=== PATIENT | female | born 1975 | race Caucasian/White ===

== ENCOUNTER 2016-12-21 06:57 | Day surgery (SDC) | payer MEDICARE, MEDICAID ==
[~2016-12-21 06:57] MED LIST: Lidocaine 1% with EPINEPHrine 1:100,000 50 ML MDV ONE; Sodium Chloride 0.9% 10 ML ONE; Sodium Tetradecyl Sulfate 1% 20 MG/2 ML SDV ONE
[2016-12-21] MEDS ORDERED: Propofol 200 MG/20 ML SDV ONE ×3 (07:40→08:37)
[2016-12-21] MEDS ORDERED: fentaNYL 100 MCG/2 ML SDV ONE ×2 (07:40→08:36)
[2016-12-21] MEDS ORDERED: Midazolam 1 MG/ML 2 ML SDV ONE ×2 (07:40→08:13)
[2016-12-21] MEDS ORDERED: Sodium Chloride 0.9% 1,000 ML IV SCH (08:00)
[2016-12-21] MEDS: Lidocaine 1% w/EPINEPHrine 50 ML, Sodium Bicarbonate 5 MEQ in Sodium Chloride 0.9% 950 ML INJECT SCH ×2 (08:15→09:01)
[2016-12-21] MEDS ORDERED: Lactated Ringers 1,000 ML ONE (08:48)
[2016-12-21 10:17] VITALS: BP 108/68
--- NOTE | 2016-12-21 13:07 | OR ---
DATE OF PROCEDURE: 12/21/2016 PROCEDURE: 1. Radiofrequency ablation of left greater saphenous vein. 2. Radiofrequency ablation of right greater saphenous vein. 3. Radiofrequency ablation of left anterior accessory vein. 4. Sclerotherapy, left leg, multiple. 5. Sclerotherapy, right leg, multiple. 6. Compression wrapping, left leg ([id number]). 7. Compression wrapping, right leg ([id number]). PREOPERATIVE DIAGNOSIS: Venous/varicose vein insufficiency with inflammation and pain. POSTOPERATIVE DIAGNOSIS: Venous/varicose vein insufficiency with inflammation and pain. RISKS: Risks, benefits, alternatives, and limitations, including, but not limited to infection, bleeding, and DVT formation along with chronic scar formation, and pigmentation change were explained to the patient, and they wished to proceed. ANESTHESIA: MAC/local. PROCEDURE IN DETAIL: The patient was placed in supine position. The left GSV would be accessed first. This was accessed around the mid calf. This was accessed using a 21-gauge needle, then exchanged for a 35,000 wire, then exchanged for a 7-Nepalese sheath. The RFA probe was advanced to the mid thigh. Tumescent fluid was injected in 1 cm jacket around this and verified a second and a third time. The direct even pressure was performed as the probe was deployed x2 proximally and distally, and x1 in all other segments. The anterior accessory vein on the left would be then addressed in same manner, same fashion, same technique in the same sequence using the same equipment. This was accessed in the mid thigh. The only difference is this was the short probe, approximately 3 cm in functional area rather than the large probe. Both the sheath and devices were removed in direct pressure along with Dermabond was applied. The right leg was then performed. The greater saphenous vein in same manner, same fashion, same technique, using the same equipment (long probe) in the same manner, same time. Sclerotherapy was then performed in left and right legs using 0.33% sodium tetradecyl. There were 6 on the left and 5 on the right. This was always drawn back to ensure intravascular injection only. No more than 2 mL was injected in one location. Two-layer CoFlex compression wrapping was then performed in the left and right legs after the Dermabond was dried. This was performed in same fashion technique using the crisscross pattern in two layers. The patient tolerated the procedure well. Rubio Moran MD /[id number]
== END 2016-12-21 10:19 | disposition home or self-care (01) ==
LOC: JP.SDS 06:57
PROVIDERS: ATTEND Surgery
DX: I87.2 Venous insufficiency (chronic) (peripheral) (principal); I83.11 Varicose veins of right lower extremity with inflammation; I83.12 Varicose veins of left lower extremity with inflammation; I83.813 Varicose veins of bilateral lower extremities with pain; F41.9 Anxiety disorder, unspecified; F32.9 Major depressive disorder, single episode, unspecified; K21.9 Gastro-esophageal reflux disease without esophagitis; F17.210 Nicotine dependence, cigarettes, uncomplicated; Z90.49 Acquired absence of other specified parts of digestive tract; Z98.84 Bariatric surgery status; Z98.890 Other specified postprocedural states; Z98.51 Tubal ligation status; Z90.722 Acquired absence of ovaries, bilateral; Z88.8 Allergy status to other drugs, medicaments and biological substances
CPT/HCPCS: 29581; 36471; 36475; 36476; C1888; J1642; J2250; J2704; J3010; J7040; J7050; J7120; J3490

== ENCOUNTER 2017-01-04 06:52 | Day surgery (SDC) | payer MEDICARE, MEDICAID ==
[2017-01-04] MEDS ORDERED: Sodium Chloride 0.9% 10 ML ONE (07:05)
[2017-01-04] MEDS ORDERED: Sodium Tetradecyl Sulfate 1% 20 MG/2 ML SDV ONE (07:05)
[2017-01-04] MEDS ORDERED: Lidocaine 1% with EPINEPHrine 1:100,000 50 ML MDV ONE (07:05)
[2017-01-04] MEDS ORDERED: Sodium Chloride 0.9% 1,000 ML IV SCH (07:30)
[2017-01-04] MEDS ORDERED: Propofol 200 MG/20 ML SDV ONE ×2 (08:07→08:33)
[2017-01-04] MEDS ORDERED: fentaNYL 100 MCG/2 ML SDV ONE ×2 (08:07→08:33)
[2017-01-04] MEDS ORDERED: Midazolam 1 MG/ML 2 ML SDV ONE (08:08)
[2017-01-04] MEDS: Lidocaine 1% w/EPINEPHrine 50 ML, Sodium Bicarbonate 5 MEQ in Sodium Chloride 0.9% 950 ML INJECT SCH ×2 (08:15→14:52)
[2017-01-04] MEDS ORDERED: Sodium Chloride 0.9% 10 ML SDV ONE (08:48)
[2017-01-04 09:38] VITALS: BP 97/44
--- NOTE | 2017-01-04 15:21 | OR ---
DATE OF PROCEDURE: 01/04/2017 PROCEDURES: 1. Radiofrequency ablation of left lesser saphenous vein. 2. Sclerotherapy left leg, multiple. 3. Sclerotherapy right leg, multiple. 4. Coldflex compression wrapping left leg ([id number]). COMPLICATIONS: None. 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 ANESTHESIA: MAC/local. INDICATIONS: A pleasant female with bilateral lesser saphenous vein reflux. RISKS: Risks, benefits, alternatives, and limitations including, but not limited to infection, bleeding, and DVT formation were explained to the patient and she wishes to proceed. PREOPERATIVE DIAGNOSES: Venous/varicose vein insufficiency with inflammation and pain. POSTOPERATIVE DIAGNOSES: Venous/varicose vein insufficiency with inflammation and pain. PROCEDURE IN DETAIL: The patient was placed in prone position. The right GSV was identified at first. This was accessed at the level of the ankle using a 21-gauge needle exchanged for a 0.035 wire and a 7-Polish sheath. Prior to introduction of the RFA probe, the vein was reinspected, and possible clot noted with this. Therefore, the RFA was terminated on the right side. The left LSV was then ablated with induction as the technique described above, and the RFA probe introduction and advancement 2 to 3 cm from the deep junction. Tumescent fluid was injected in 1 cm jacket around this. Of note, tumescent fluid was not injected in the right leg. Direct even pressure was held as the probe was deployed x2 proximally and distally and x1 in all of the segments. The sheath and device were then removed and Dermabond was applied. Sclerotherapy was then performed next using 0.33% sodium tetradecyl. This was performed in the left and right legs using no more than 2 mL injected in all locations. There was 5 on the left and 4 on the right. Coldflex wrapping was performed on the left leg. Rubio Moran MD /[id number]
== END 2017-01-04 10:15 | disposition home or self-care (01) ==
LOC: JP.SDS 06:52
PROVIDERS: ATTEND Surgery
DX: I87.2 Venous insufficiency (chronic) (peripheral) (principal); I83.11 Varicose veins of right lower extremity with inflammation; I83.12 Varicose veins of left lower extremity with inflammation; I83.813 Varicose veins of bilateral lower extremities with pain; Z88.8 Allergy status to other drugs, medicaments and biological substances; F17.200 Nicotine dependence, unspecified, uncomplicated
CPT/HCPCS: 29581; 36471; 36475; J1642; J2250; J2704; J3010; J7040; J7050; J3490

== ENCOUNTER 2017-08-25 06:37 | Emergency (ER) | payer MEDICARE, MEDICAID ==
--- NOTE | 2017-08-25 08:49 | EDM.PDOC ---
ED HPI GENERAL MEDICAL PROBLEM - General Chief Complaint: Cardiovascular Problem Stated Complaint: BLOOD CLOT? Time Seen by Provider: 08/25/17 07:20 Source of Information: Reports: Patient History Limitations: Reports: No Limitations - History of Present Illness INITIAL COMMENTS - FREE TEXT/NARRATIVE: pt arrived with redness and tenderness in her loer inner thigh. She has had a vein procedure done and it was near one of the scars. Onset: Gradual, Other ( started about 2 days ago. ) Duration: Hour(s):, Getting Worse Location: Reports: Lower Extremity, Right Associated Symptoms: Reports: No Other Symptoms, Other (pt has not had sob. ) - Related Data Allergies Allergy/AdvReac Type Severity Reaction Status Date / Time carbamazepine [From Tegretol] Allergy Abdominal Verified 01/04/17 07:19 Pain NSAIDS (Non-Steroidal Allergy Cannot Verified 01/04/17 07:19 Anti-Inflamma Remember meperidine HCl [From Demerol] AdvReac Shaking Verified 01/04/17 07:19 Home Meds: Home Meds Omeprazole 20 mg PO DAILY 03/06/13 [History] Phenytoin [Dilantin] 450 mg PO BEDTIME 03/06/13 [History] Warfarin [Coumadin] 7.5 mg PO BEDTIME 03/06/13 [History] Topiramate [Topamax] 50 mg PO DAILY 09/02/13 [History] Venlafaxine [Effexor] 75 mg PO BEDTIME 06/02/14 [History] Carbidopa/Levodopa [Sinemet Cr 25-100 mg] 25 - 100 mg PO DAILY 07/27/14 [History ] Mirtazapine 30 mg PO DAILY 07/27/14 [History] EPINEPHrine [Epipen] 0.3 mg IM ONETIME PRN 05/07/15 [History] Multivitamin with Minerals [Brandan Multivitamin with Mineral] 1 tab PO DAILY 05/07 [History] Past Medical History HEENT History: Reports: Other (See Below) Other HEENT History: Dental issues Cardiovascular History: Reports: Blood Clots/VTE/DVT Respiratory History: Reports: PE, Other (See Below) Other Respiratory History: PE 12 years ago on coumadin. Gastrointestinal History: Reports: None Genitourinary History: Reports: None [employer] History: Reports: Musculoskeletal History: Reports: None Neurological History: Reports: Seizure Other Neuro History: last seizure 3 years ago Psychiatric History: Reports: Anxiety, Bipolar, Depression, Emotional Problems Hematologic History: Reports: B12 Deficiency, Bleeding Disorder, Iron Deficiency , Other (See Below) Other Hematologic History: factor 5 Dermatologic History: Reports: None - Infectious Disease History Infectious Disease History: Reports: Chicken Pox - Past Surgical History HEENT Surgical History: Reports: None Cardiovascular Surgical History: Reports: None Respiratory Surgical History: Reports: None GI Surgical History: Reports: Appendectomy, Bariatric Procedure, Cholecystectomy , EGD Neurological Surgical History: Reports: None Musculoskeletal Surgical History: Reports: Carpal Tunnel Social & Family History - Family History Family Medical History: Noncontributory Cardiac: Reports: [place] Respiratory: Reports: Other (See Below) Other Respiratory Family Hisory: emphysema Psychiatric: Reports: Other (See Below) Other Psychiatric Family History: Mental illness,alzheimers Endocrine/Metabolic: Reports: Diabetes, type II Oncologic: Reports: Breast, Lung - Tobacco Use Smoking Status *Q: Current Every Day Smoker Years of Tobacco use: 20 Packs/Tins Daily: 0.5 Used Tobacco, but Quit: No Second Hand Smoke Exposure: No - Caffeine Use Caffeine Use: Reports: Coffee - Alcohol Use Days Per Week of Alcohol Use: 0 - Recreational Drug Use Recreational Drug Use: No ED ROS GENERAL - Review of Systems Review Of Systems: See Below Constitutional: Reports: No Symptoms HEENT: Reports: No Symptoms Respiratory: Reports: No Symptoms, Other (pt is not sob,) Cardiovascular: Reports: No Symptoms Endocrine: Reports: No Symptoms GI/Abdominal: Reports: No Symptoms : Reports: No Symptoms Musculoskeletal: Reports: Other ( tendr in the rt inner thigh area. ) ED EXAM, GENERAL - Physical Exam Exam: See Below Free Text/Narrative:: Pt arrived with redness in one of the scars on the inner rt thigh. It is red and firm and quite tender. Exam Limited By: No Limitations General Appearance: Alert, Anxious Ears: Normal TMs Nose: Normal Inspection Throat/Mouth: Normal Inspection Head: Atraumatic Neck: Normal Inspection Respiratory/Chest: No Respiratory Distress Cardiovascular: Regular Rate, Rhythm GI/Abdominal: Soft, Non-Tender (Female) Exam: Deferred Rectal (Female) Exam: Deferred Back Exam: Normal Inspection Extremities: Redness (pt has redness near a scar on the inner aspect of the rt thigh. There is tenderness extending to the groin area. The area of redness and firmness feels like a superficial dvt. ), Other Neurological: Alert, Oriented, Normal Cognition Psychiatric: Normal Affect Course - Vital Signs Last Recorded V/S: Last Vital Signs Temp 36.9 C 08/25/17 07:03 Pulse 63 08/25/17 07:03 Resp 12 08/25/17 07:03 BP 114/51 L 08/25/17 07:03 Pulse Ox 94 L 08/25/17 07:03 - Orders/Labs/Meds Orders: Active Orders 24 hr Category Date Time Status Duplex Lwr Ext Veins Ltd Rt [US] Stat Exams 08/25/17 07:43 Taken Labs: Laboratory Tests 08/25/17 Range/Units 09:10 PT 20.7 H (9.5-12.0) sec INR 1.88 H (0.80-1.20) - Re-Assessments/Exams Free Text/Narrative Re-Assessment/Exam: 08/25/17 09:52 us did not reveal any deep clot. She has residual changes from her vein procedure. She has a superficial dvt on the us. Her inr is 1.88. Departure - Departure Time of Disposition: 09:53 Disposition: Home, Self-Care 01 Condition: Fair Clinical Impression: Superficial thrombophlebitis Referrals: Waldemar Chandler MD [Primary Care Provider] - Forms: ED Department Discharge Care Plan Goals: elevate leg when sitting, moist warm packs to the area. tylenol for discomfort. - My Orders Last 24 Hours: My Active Orders 08/25/17 07:43 Duplex Lwr Ext Veins Ltd Rt [US] Stat - Assessment/Plan Last 24 Hours: My Active Orders 08/25/17 07:43 Duplex Lwr Ext Veins Ltd Rt [US] Stat
[2017-08-25 10:18] VITALS: BP 98/70
--- NOTE | 2017-08-27 09:42 | US ---
VL Duplex Lwr Ext Veins Ltd Rt HISTORY: possible blood clot FINDINGS: Deep venous system of the right lower extremity demonstrates normal blood flow and compressibility th roughout. Normal Doppler waveform variation is seen with respiration and calf compression. No color f low abnormality can be seen. Superficial thrombus is seen in the right greater saphenous vein and in the distal anterior accessory saphenous vein. This probably correlates with the patient's history of prior RFA greater saphenous v ein. IMPRESSION: 1. No sonographic evidence for DVT right lower extremity. 2. Superficial thrombus is seen in the right greater saphenous vein and in the anterior accessory sap henous vein distal thigh. The patient has a history of right greater saphenous vein RFA.
== END 2017-08-25 10:19 | disposition home or self-care (01) ==
LOC: JP.ED 06:37
DX: I80.01 Phlebitis and thrombophlebitis of superficial vessels of right lower extremity (principal); F17.210 Nicotine dependence, cigarettes, uncomplicated; Z88.8 Allergy status to other drugs, medicaments and biological substances; Z88.5 Allergy status to narcotic agent; Z79.899 Other long term (current) drug therapy; Z86.718 Personal history of other venous thrombosis and embolism
CPT/HCPCS: 36415; 85610; 93971-26; 93971-RT; 99284-25

== ENCOUNTER 2017-08-31 17:55 | Emergency (ER) | payer MEDICARE, MEDICAID ==
[2017-08-31 18:10] VITALS: BP 139/61
--- NOTE | 2017-08-31 18:49 | EDM.PDOC ---
ED HPI GENERAL MEDICAL PROBLEM - General Chief Complaint: Cardiovascular Problem Stated Complaint: CONCERN ABOUT BLOOD CLOT/LT LEG Time Seen by Provider: 08/31/17 18:40 Source of Information: Reports: Patient History Limitations: Reports: No Limitations - History of Present Illness INITIAL COMMENTS - FREE TEXT/NARRATIVE: 41-year-old female with a history of DVT, also a hypercoagulable disorder on Coumadin but was subtherapeutic on her last check. Over the last 12-24 hours she 's developed discomfort and pain under the left leg in the popliteal area into her calf. Left Leg Pain Score (Numeric/FACES): 6 - Related Data Allergies Allergy/AdvReac Type Severity Reaction Status Date / Time carbamazepine [From Tegretol] Allergy Abdominal Verified 08/31/17 18:21 Pain NSAIDS (Non-Steroidal Allergy Cannot Verified 08/31/17 18:21 Anti-Inflamma Remember meperidine HCl [From Demerol] AdvReac Shaking Verified 08/31/17 18:21 Home Meds: Home Meds Omeprazole 20 mg PO DAILY 03/06/13 [History] Phenytoin [Dilantin] 450 mg PO BEDTIME 03/06/13 [History] Warfarin [Coumadin] 7.5 mg PO BEDTIME 03/06/13 [History] Topiramate [Topamax] 50 mg PO DAILY 09/02/13 [History] Venlafaxine [Effexor] 75 mg PO BEDTIME 06/02/14 [History] Carbidopa/Levodopa [Sinemet Cr 25-100 mg] 25 - 100 mg PO DAILY 07/27/14 [History ] Mirtazapine 30 mg PO DAILY 07/27/14 [History] EPINEPHrine [Epipen] 0.3 mg IM ONETIME PRN 05/07/15 [History] Multivitamin with Minerals [Brandan Multivitamin with Mineral] 1 tab PO DAILY 05/07 [History] Past Medical History HEENT History: Reports: Other (See Below) Other HEENT History: Dental issues Cardiovascular History: Reports: Blood Clots/VTE/DVT Respiratory History: Reports: PE, Other (See Below) Other Respiratory History: PE 12 years ago on coumadin. Gastrointestinal History: Reports: None Genitourinary History: Reports: None [employer] History: Reports: Musculoskeletal History: Reports: None Neurological History: Reports: Seizure Other Neuro History: last seizure 3 years ago Psychiatric History: Reports: Anxiety, Bipolar, Depression, Emotional Problems Hematologic History: Reports: B12 Deficiency, Bleeding Disorder, Iron Deficiency , Other (See Below) Other Hematologic History: factor 5 Dermatologic History: Reports: None - Infectious Disease History Infectious Disease History: Reports: Chicken Pox - Past Surgical History HEENT Surgical History: Reports: None Cardiovascular Surgical History: Reports: None Respiratory Surgical History: Reports: None GI Surgical History: Reports: Appendectomy, Bariatric Procedure, Cholecystectomy , EGD Neurological Surgical History: Reports: None Musculoskeletal Surgical History: Reports: Carpal Tunnel Social & Family History - Family History Family Medical History: Noncontributory Cardiac: Reports: [place] Respiratory: Reports: Other (See Below) Other Respiratory Family Hisory: emphysema Psychiatric: Reports: Other (See Below) Other Psychiatric Family History: Mental illness,alzheimers Endocrine/Metabolic: Reports: Diabetes, type II Oncologic: Reports: Breast, Lung - Tobacco Use Smoking Status *Q: Unknown Ever Smoked Years of Tobacco use: 20 Packs/Tins Daily: 0.5 Used Tobacco, but Quit: No Second Hand Smoke Exposure: No - Caffeine Use Caffeine Use: Reports: Coffee - Alcohol Use Days Per Week of Alcohol Use: 0 - Recreational Drug Use Recreational Drug Use: No ED ROS GENERAL - Review of Systems Review Of Systems: See Below Constitutional: Denies: Fever, Chills Respiratory: Denies: Shortness of Breath, Cough Cardiovascular: Denies: Chest Pain GI/Abdominal: Denies: Abdominal Pain, Nausea, Vomiting : Reports: No Symptoms Musculoskeletal: Reports: Other (She is already dealing with some superficial medial right leg discomfort diagnosed as superficial thrombosis a week and a half ago) Neurological: Reports: No Symptoms Psychiatric: Reports: No Symptoms ED EXAM, GENERAL - Physical Exam Exam: See Below General Appearance: Alert, No Apparent Distress Respiratory/Chest: No Respiratory Distress Cardiovascular: Regular Rate, Rhythm Extremities: Other (Exam is otherwise limited to the lower extremities. She has fairly significant tenderness to palpation through the popliteal area and proximal calf of the left leg. There is no erythema or swelling, no distal edema.) Course - Vital Signs Last Recorded V/S: Last Vital Signs Temp 97.9 F 08/31/17 18:20 Pulse 74 08/31/17 18:20 Resp 16 08/31/17 18:20 BP 139/61 08/31/17 18:20 Pulse Ox 99 08/31/17 18:20 - Orders/Labs/Meds Orders: Active Orders 24 hr Category Date Time Status VL Duplex Lwr Ext Veins Ltd Lt [US] Stat Exams 08/31/17 18:47 Taken Labs: Laboratory Tests 08/31/17 Range/Units 18:47 PT 19.7 H (9.5-12.0) sec INR 1.80 H (0.80-1.20) - Re-Assessments/Exams Free Text/Narrative Re-Assessment/Exam: 08/31/17 19:40 INR is 1.8. Ultrasound of the left extremity was obtained. 08/31/17 20:19 Ultrasound showed no acute findings, some chronic venous inflammation was present but not corresponding to painful areas. Patient was encouraged to continue regular activity, recheck the INR on Sunday morning and call the Coumadin clinic for further instructions. Heating pad to the sore area may help. Departure - Departure Time of Disposition: 20:26 Disposition: Home, Self-Care 01 Condition: Good Clinical Impression: Leg pain, left Referrals: Waldemar Chandler MD [Primary Care Provider] - Forms: ED Department Discharge Care Plan Goals: Continue activity as tolerated, heating pad to the sore area may be beneficial. Recheck INR on Sunday and call the Coumadin clinic for further instructions, or return anytime if worsening or concerns. - My Orders Last 24 Hours: My Active Orders 08/31/17 18:47 VL Duplex Lwr Ext Veins Ltd Lt [US] Stat - Assessment/Plan Last 24 Hours: My Active Orders 08/31/17 18:47 VL Duplex Lwr Ext Veins Ltd Lt [US] Stat
--- NOTE | 2017-09-03 08:46 | US ---
VL Duplex Lwr Ext Veins Ltd Lt INDICATION: popliteal pain, hx dvt FINDINGS: Ultrasound examination of the lower extremity using Doppler and compressive technique demon strates that the common femoral, femoral, and popliteal veins are patent, and negative for acute occl usive thrombus. There is mild thickening of the maher of the left femoral vein suggesting chronic DVT . Occlusion of the left greater saphenous and lesser saphenous veins consistent with history of RFA. The calf veins were segmentally visualized and are negative where seen. IMPRESSION: Negative for acute deep venous thrombosis. Please see discussion above.
== END 2017-08-31 20:26 | disposition home or self-care (01) ==
LOC: JP.ED 17:55
DX: M79.605 Pain in left leg (principal); Z88.8 Allergy status to other drugs, medicaments and biological substances; Z79.899 Other long term (current) drug therapy
CPT/HCPCS: 36415; 85610; 93971-26-LT; 93971-LT; 99284-25

== ENCOUNTER 2017-12-08 15:27 | Emergency (ER) | payer MEDICARE, MEDICAID ==
[2017-12-08 15:47] VITALS: BP 119/69
--- NOTE | 2017-12-08 16:34 | EDM.PDOC ---
ED HPI GENERAL MEDICAL PROBLEM - General Chief Complaint: Lower Extremity Injury/Pain Stated Complaint: POSSIBLE BLOOD CLOT IN LEG Time Seen by Provider: 12/08/17 16:10 Source of Information: Reports: Patient History Limitations: Reports: No Limitations - History of Present Illness INITIAL COMMENTS - FREE TEXT/NARRATIVE: Adela presents today with complaints of LLE pain, edema and redness for two days. She reports a history of DVT, stating her INR has not been within the appropriate range lately. leeft leg Pain Score (Numeric/FACES): 3 - Related Data Allergies Allergy/AdvReac Type Severity Reaction Status Date / Time carbamazepine [From Tegretol] Allergy Abdominal Verified 12/08/17 15:51 Pain NSAIDS (Non-Steroidal Allergy Cannot Verified 12/08/17 15:51 Anti-Inflamma Remember meperidine HCl [From Demerol] AdvReac Shaking Verified 12/08/17 15:51 Home Meds: Home Meds Omeprazole 20 mg PO DAILY 03/06/13 [History] Phenytoin [Dilantin] 450 mg PO BEDTIME 03/06/13 [History] Warfarin [Coumadin] 7.5 mg PO BEDTIME 03/06/13 [History] Topiramate [Topamax] 50 mg PO DAILY 09/02/13 [History] Venlafaxine [Effexor] 75 mg PO BEDTIME 06/02/14 [History] Carbidopa/Levodopa [Sinemet Cr 25-100 mg] 25 - 100 mg PO DAILY 07/27/14 [History ] Mirtazapine 30 mg PO DAILY 07/27/14 [History] EPINEPHrine [Epipen] 0.3 mg IM ONETIME PRN 05/07/15 [History] Multivitamin with Minerals [Brandan Multivitamin with Mineral] 1 tab PO DAILY 05/07 [History] Past Medical History HEENT History: Reports: Other (See Below) Other HEENT History: Dental issues Cardiovascular History: Reports: Blood Clots/VTE/DVT Respiratory History: Reports: PE, Other (See Below) Other Respiratory History: PE 12 years ago on coumadin. 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: Musculoskeletal History: Reports: None Neurological History: Reports: Seizure, Other (See Below) Other Neuro History: last seizure 3 years ago, epilepsy Psychiatric History: Reports: Anxiety, Bipolar, Depression, Emotional Problems Hematologic History: Reports: B12 Deficiency, Bleeding Disorder, Iron Deficiency , Other (See Below) Other Hematologic History: factor 5 Dermatologic History: Reports: None - Infectious Disease History Infectious Disease History: Reports: Chicken Pox - Past Surgical History HEENT Surgical History: Reports: None Cardiovascular Surgical History: Reports: None Respiratory Surgical History: Reports: None GI Surgical History: Reports: Appendectomy, Bariatric Procedure, Cholecystectomy , EGD Neurological Surgical History: Reports: None Musculoskeletal Surgical History: Reports: Carpal Tunnel Social & Family History - Family History Family Medical History: Noncontributory Cardiac: Reports: [place] Respiratory: Reports: Other (See Below) Other Respiratory Family Hisory: emphysema Psychiatric: Reports: Other (See Below) Other Psychiatric Family History: Mental illness,alzheimers Endocrine/Metabolic: Reports: Diabetes, type II Oncologic: Reports: Breast, Lung - Tobacco Use Smoking Status *Q: Current Every Day Smoker Years of Tobacco use: 20 Packs/Tins Daily: 0.5 - Caffeine Use Caffeine Use: Reports: Coffee - Recreational Drug Use Recreational Drug Use: No Review of Systems - Review of Systems Review Of Systems: See Below Constitutional: Denies: Diaphoresis, Fever, Weakness Eyes: Reports: No Symptoms Ears: Reports: No Symptoms Nose: Reports: No Symptoms Mouth/Throat: Reports: No Symptoms Respiratory: Denies: Shortness of Breath, Wheezing, Cough, Sputum, Hemoptysis Cardiovascular: Reports: Edema. Denies: Chest Pain, Irregular Heart Rate, Lightheadedness, Palpitations, Syncope GI/Abdominal: Reports: No Symptoms Musculoskeletal: Reports: Leg Pain, Other (Pain, edema and redness to LLE at foot and ankle to calf. ). Denies: Joint Pain, Joint Swelling, Muscle Pain, Muscle Stiffness Skin: Reports: Dryness, Erythema. Denies: Bruising, Pruritis, Wound Neurological: Reports: No Symptoms Psychiatric: Reports: No Symptoms ED EXAM, GENERAL - Physical Exam Exam: See Below Free Text/Narrative:: August presents today with complaints of LLE pain, edema and redness for two days. Exam Limited By: No Limitations General Appearance: Alert, WD/WN, No Apparent Distress Eye Exam: Bilateral Eye: EOMI, Normal Inspection, PERRL Ear Exam: Bilateral Ear: Auricle Normal, Canal Normal, TM normal Nose: Normal Inspection, Normal Mucosa, No Blood Throat/Mouth: Normal Inspection, Normal Lips, Normal Gums, Normal Oropharynx, Normal Voice, No Airway Compromise Head: Atraumatic, Normocephalic Neck: Normal Inspection, Supple, Non-Tender, Full Range of Motion. No: Lymphadenopathy (R), Lymphadenopathy (L) Respiratory/Chest: No Respiratory Distress, Lungs Clear, Normal Breath Sounds, No Accessory Muscle Use, Chest Non-Tender Cardiovascular: Normal Peripheral Pulses, Regular Rate, Rhythm, No Edema, No Gallop, No Murmur, No Rub Peripheral Pulses: 2+: Radial (L), Radial (R), Dorsalis Pedis (L), Dorsalis Pedis (R) Back Exam: Normal Inspection, Full Range of Motion. No: CVA Tenderness (R), CVA Tenderness (L) Extremities: Normal Range of Motion, Normal Capillary Refill, Pedal Edema, Leisa 's Sign, Leg Pain, Increased Warmth, Redness, Other (LLE has erythema, edema and redness) Neurological: Alert, Oriented, CN II-XII Intact, Normal Cognition, Normal Reflexes, No Motor/Sensory Deficits, Other (Limping gait favoring LLE.) Psychiatric: Normal Affect, Normal Mood Skin Exam: Intact, Erythema, Increased Warmth Course - Vital Signs Last Recorded V/S: Last Vital Signs Temp 36.2 C 12/08/17 15:46 Pulse 62 12/08/17 15:46 Resp 16 12/08/17 15:46 BP 119/69 12/08/17 15:46 Pulse Ox 100 12/08/17 15:46 - Orders/Labs/Meds Orders: Active Orders 24 hr Category Date Time Status VL Duplex Lwr Ext Veins Ltd Lt [US] Stat Exams 12/08/17 16:27 Taken Labs: Laboratory Tests 12/08/17 12/08/17 12/08/17 Range/Units 16:41 16:41 16:41 WBC 6.8 (4.5-11.0) K/uL RBC 4.64 (3.30-5.50) M/uL Hgb 11.1 L (12.0-15.0) g/dL Hct 35.0 L (36.0-48.0) % MCV 75 L (80-98) fL MCH 24 L (27-31) pg MCHC 32 (32-36) % Plt Count 265 (150-400) K/uL Neut % (Auto) 60 (36-66) % Lymph % (Auto) 29 (24-44) % [place] % (Auto) 10 H (2-6) % Eos % (Auto) 1 L (2-4) % Baso % (Auto) 0 (0-1) % PT 15.6 H (9.5-12.0) sec INR 1.45 H (0.80-1.20) APTT 30.1 (27.0-36.0) sec Sodium 137 L (140-148) mmol/L Potassium 4.2 (3.6-5.2) mmol/L Chloride 103 (100-108) mmol/L Carbon Dioxide 27 (21-32) mmol/L Anion Gap 11.2 (5.0-14.0) mmol/L BUN 8 (7-18) mg/dL Creatinine 0.5 L (0.6-1.0) mg/dL Est Cr Clr Drug Dosing 150.05 mL/min Estimated GFR (MDRD) > 60 (>60) Glucose 96 (74-106) mg/dL Calcium 8.3 L (8.5-10.1) mg/dL Departure - Departure Time of Disposition: 17:40 Disposition: Home, Self-Care 01 Condition: Good Clinical Impression: Edema of soft tissue of left ankle region - Discharge Information *PRESCRIPTION DRUG MONITORING PROGRAM REVIEWED*: Not Applicable *COPY OF PRESCRIPTION DRUG MONITORING REPORT IN PATIENT GAYATRI: Not Applicable Instructions: Edema Referrals: Waldemar Chandler MD [Primary Care Provider] - Forms: ED Department Discharge, ED Return to Work/School Form Additional Instructions: You have been evaluated and treated for left lower ankle edema of soft tissues. US of your left lower leg was negative for DVT. Your INR is subtherapeutic at 1.45, PT 15.6. Take an additional 5mg coumadin daily for the next three days. Follow up with Dr. Chandler on 12-11-17 as scheduled for a recheck. Do not work tonight. You can rest, elevate, ice and use an gwen wrap to your left ankle for comfort. You may take acetaminophen for pain as needed. Return to the emergency room for worsening, issues or concerns. - My Orders Last 24 Hours: My Active Orders 12/08/17 16:27 VL Duplex Lwr Ext Veins Ltd Lt [US] Stat - Assessment/Plan Last 24 Hours: My Active Orders 12/08/17 16:27 VL Duplex Lwr Ext Veins Ltd Lt [US] Stat Plan: Patient evaluated and treated for left lower ankle edema of soft tissues. US of left lower leg was negative for DVT. INR subtherapeutic at 1.45, PT 15.6. Take an additional 5mg coumadin daily for the next three days. Follow up with Dr. Chandler on 12-11-17 as scheduled for a recheck. Do not work tonight. You can rest, elevate, ice and use an gwen wrap to your left ankle for comfort. You may take acetaminophen for pain as needed. Return to the emergency room for worsening, issues or concerns.
--- NOTE | 2017-12-10 08:56 | US ---
VL Duplex Lwr Ext Veins Ltd Lt INDICATION: pain, redness, edema LLE, history of DVT FINDINGS: Ultrasound examination of the lower extremity using Doppler and compressive technique demon strates that the common femoral, femoral, and popliteal veins are patent, and negative for thrombus. The calf veins were segmentally visualized and are negative where seen. IMPRESSION: Negative for deep venous thrombosis.
== END 2017-12-08 18:30 | disposition home or self-care (01) ==
LOC: JP.ED 15:27
DX: R60.0 Localized edema (principal); F31.9 Bipolar disorder, unspecified; F17.210 Nicotine dependence, cigarettes, uncomplicated; Z88.8 Allergy status to other drugs, medicaments and biological substances; Z79.899 Other long term (current) drug therapy; Z79.01 Long term (current) use of anticoagulants
CPT/HCPCS: 36415; 80048; 85025; 85610; 85730; 93971-26-LT; 93971-LT; 99284-25

== ENCOUNTER 2018-09-30 13:29 | Emergency (ER) | payer MEDICARE, MEDICAID ==
[2018-09-30] MEDS ORDERED: Acetaminophen/oxyCODONE 325-5 MG Tab PO ONE (14:58)
--- NOTE | 2018-09-30 15:01 | EDM.PDOC ---
ED HPI GENERAL MEDICAL PROBLEM - General Chief Complaint: Cardiovascular Problem Stated Complaint: RIGHT LEG PAIN Time Seen by Provider: 09/30/18 14:50 Source of Information: Reports: Patient, Old Records, RN History Limitations: Reports: No Limitations - History of Present Illness INITIAL COMMENTS - FREE TEXT/NARRATIVE: 42 yo female with Factor V Leiden deficiency presents with R groin pain that began last night and has worsened. Has a pHx of recurrent DVT's and is currently on warfarin. No SOB or pleuritic chest pain. 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) Groin Pain Score (Numeric/FACES): 7 - Related Data Allergies Allergy/AdvReac Type Severity Reaction Status Date / Time carbamazepine [From Tegretol] Allergy Abdominal Verified 12/08/17 15:51 Pain NSAIDS (Non-Steroidal Allergy Cannot Verified 12/08/17 15:51 Anti-Inflamma Remember meperidine HCl [From Demerol] AdvReac Shaking Verified 12/08/17 15:51 Home Meds: Home Meds Omeprazole 20 mg PO DAILY 03/06/13 [History] Phenytoin [Dilantin] 450 mg PO BEDTIME 03/06/13 [History] Warfarin [Coumadin] 7.5 mg PO BEDTIME 03/06/13 [History] Topiramate [Topamax] 50 mg PO DAILY 09/02/13 [History] Venlafaxine [Effexor] 75 mg PO BID 06/02/14 [History] Carbidopa/Levodopa [Sinemet Cr 25-100 mg] 25 - 100 mg PO DAILY 07/27/14 [History ] Mirtazapine 30 mg PO DAILY 07/27/14 [History] EPINEPHrine [Epipen] 0.3 mg IM ONETIME PRN 05/07/15 [History] Multivitamin with Minerals [Brandan Multivitamin with Mineral] 1 tab PO DAILY 05/07 [History] Acetaminophen/oxyCODONE [Percocet 325-5 MG] 1 - 2 tab PO QID PRN #14 tab [Rx] Past Medical History HEENT History: Reports: Other (See Below) Other HEENT History: Dental issues Cardiovascular History: Reports: Blood Clots/VTE/DVT Respiratory History: Reports: PE, Other (See Below) Other Respiratory History: PE 12 years ago on coumadin. 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: Neurological History: Reports: Seizure, Other (See Below) Other Neuro History: last seizure 3 years ago, epilepsy Psychiatric History: Reports: Anxiety, Bipolar, Depression, Emotional Problems Hematologic History: Reports: B12 Deficiency, Bleeding Disorder, Iron Deficiency , Other (See Below) Other Hematologic History: factor 5 - Infectious Disease History Infectious Disease History: Reports: Chicken Pox - Past Surgical History HEENT Surgical History: Reports: None Cardiovascular Surgical History: Reports: None Respiratory Surgical History: Reports: None Female Surgical History: Reports: Breast Reduction, Section, D&C, Oophorectomy, Tubal Ligation Neurological Surgical History: Reports: None Other Oncologic Surgeries/Procedures: precancerous cells in uterous, had a COMB done Social & Family History - Family History Family Medical History: Noncontributory Cardiac: Reports: [place] Respiratory: Reports: Other (See Below) Other Respiratory Family Hisory: emphysema Psychiatric: Reports: Other (See Below) Other Psychiatric Family History: Mental illness,alzheimers Endocrine/Metabolic: Reports: Diabetes, type II Oncologic: Reports: Breast, Lung - Tobacco Use Smoking Status *Q: Heavy Tobacco Smoker Years of Tobacco use: 20 Packs/Tins Daily: 0.5 - Caffeine Use Caffeine Use: Reports: Coffee - Recreational Drug Use Recreational Drug Use: No ED ROS GENERAL - Review of Systems Review Of Systems: See Below Constitutional: Reports: No Symptoms HEENT: Reports: No Symptoms Respiratory: Reports: No Symptoms Cardiovascular: Reports: No Symptoms Musculoskeletal: Reports: Leg Pain (R groin pain) Skin: Reports: No Symptoms Neurological: Reports: No Symptoms ED EXAM, GENERAL - Physical Exam Exam: See Below Exam Limited By: No Limitations General Appearance: Alert, WD/WN, No Apparent Distress Eye Exam: Bilateral Eye: Normal Inspection Ears: Normal External Exam, Hearing Grossly Normal Ear Exam: Bilateral Ear: Auricle Normal, Canal Normal Nose: Normal Inspection, No Blood Throat/Mouth: Normal Inspection, Normal Lips, Normal Oropharynx, Normal Voice, No Airway Compromise Head: Atraumatic, Normocephalic Neck: Normal Inspection Respiratory/Chest: No Respiratory Distress, No Accessory Muscle Use Cardiovascular: Regular Rate, Rhythm Extremities: Normal Inspection, Other (R proximal/medial thigh has localizable tenderness, any attempted lifting of the leg increases her pain. ). No: Non- Tender, Pedal Edema, Leisa's Sign, Increased Warmth (no redness or increased warmth.), Redness Neurological: Alert, Oriented, CN II-XII Intact, Normal Cognition, No Motor/ Sensory Deficits Psychiatric: Normal Affect, Normal Mood Skin Exam: Warm, Dry, Intact, Normal Color, No Rash Course - Vital Signs Last Recorded V/S: Last Vital Signs Temp 36.3 C 09/30/18 14:50 Pulse 74 09/30/18 14:50 Resp 16 09/30/18 14:50 BP 118/46 L 09/30/18 14:50 Pulse Ox 100 09/30/18 14:50 - Orders/Labs/Meds Orders: Active Orders 24 hr Category Date Time Status Duplex Lwr Ext Veins Ltd Rt [US] Stat Exams 09/30/18 14:58 Ordered Meds: Medications Discontinued Medications Generic Name Dose Route Start Last Admin Trade Name Freq PRN Reason Stop Dose Admin Oxycodone/Acetaminophen 1 tab 09/30/18 14:58 09/30/18 15:10 Percocet 325-5 Mg PO 09/30/18 14:59 1 tab ONETIME ONE Administration - Radiology Interpretation Free Text/Narrative:: Venous doppler of the R leg-neg for DVT, has a large painful lymph node seen. Departure - Departure Time of Disposition: 17:28 Disposition: Home, Self-Care 01 Condition: Fair Clinical Impression: Lymph nodes enlarged Referrals: Waldemar Chandler MD [Primary Care Provider] - Forms: ED Department Discharge Additional Instructions: Take Percocet 1-2 every 6 hrs as needed. F/U in the clinic for recheck in 1-2 days. Return as needed. - My Orders Last 24 Hours: My Active Orders 09/30/18 14:58 Duplex Lwr Ext Veins Ltd Rt [US] Stat - Assessment/Plan Last 24 Hours: My Active Orders 09/30/18 14:58 Duplex Lwr Ext Veins Ltd Rt [US] Stat
[2018-09-30 15:02] VITALS: BP 118/46
--- NOTE | 2018-09-30 18:06 | CRLUS ---
INDICATION: Right groin pain, history of DVTs TECHNIQUE: Ultrasound venous duplex lower right extremity. Compression venous exam was performed using sow-scale, color Doppler, and spectral Doppler imaging. COMPARISON: None FINDINGS: Sonographic imaging demonstrates the right common femoral, deep femoral, superficial femoral, popliteal, posterior tibial and greater saphenous and the contralateral left common femoral veins to be fully compressible with normal color Doppler blood flow. 1.5 centimeter right inguinal lymph node. IMPRESSION: No evidence of deep venous thrombosis right lower extremity. 1.5 centimeter right inguinal lymph node. Dictated by Wallace Elliott MD @ 09/30/2018 6:04:39 PM Dictated by: Wallace Elliott MD @ 09/30/2018 18:04:45 (Electronically Signed)
== END 2018-09-30 17:49 | disposition home or self-care (01) ==
LOC: JP.ED 13:29
DX: R59.0 Localized enlarged lymph nodes (principal); F41.9 Anxiety disorder, unspecified; F31.9 Bipolar disorder, unspecified; F17.210 Nicotine dependence, cigarettes, uncomplicated; Z88.8 Allergy status to other drugs, medicaments and biological substances; Z79.899 Other long term (current) drug therapy; Z79.01 Long term (current) use of anticoagulants
CPT/HCPCS: 93971; 99283; A9270

== ENCOUNTER 2019-03-06 00:55 | Emergency (ER) | payer MEDICAID, MEDICARE ==
[2019-03-06 01:30] VITALS: BP 143/75; PULSE 63
--- NOTE | 2019-03-06 02:36 | EDM.PDOCBH ---
ED HPI GENERAL MEDICAL PROBLEM - General Chief Complaint: Behavioral/Psych Stated Complaint: EVAL Time Seen by Provider: 03/06/19 01:36 Source of Information: Reports: Patient History Limitations: Reports: No Limitations - History of Present Illness INITIAL COMMENTS - FREE TEXT/NARRATIVE: This lady is here because of depression. She said some chronic problems have flared up recently and today she had several beers which does seem to make it worse and so she has come in feeling very distraught. She doesn't want to talk about her specific problems however. She denies any thoughts of suicide. - Related Data Allergies Allergy/AdvReac Type Severity Reaction Status Date / Time carbamazepine [From Tegretol] Allergy Abdominal Verified 03/06/19 01:11 Pain NSAIDS (Non-Steroidal Allergy Cannot Verified 03/06/19 01:11 Anti-Inflamma Remember meperidine HCl [From Demerol] AdvReac Shaking Verified 03/06/19 01:11 Home Meds: Home Meds Omeprazole 20 mg PO DAILY 03/06/13 [History] Phenytoin [Dilantin] 450 mg PO BEDTIME 03/06/13 [History] Topiramate [Topamax] 50 mg PO DAILY 09/02/13 [History] Venlafaxine [Effexor] 75 mg PO BID 06/02/14 [History] Carbidopa/Levodopa [Sinemet Cr 25-100 mg] 25 - 100 mg PO DAILY 07/27/14 [History ] Mirtazapine 30 mg PO DAILY 07/27/14 [History] EPINEPHrine [Epipen] 0.3 mg IM ONETIME PRN 05/07/15 [History] Apixaban [Eliquis] 1 tab PO BID 03/06/19 [History] Past Medical History HEENT History: Reports: Other (See Below) Other HEENT History: Dental issues Cardiovascular History: Reports: Blood Clots/VTE/DVT Respiratory History: Reports: PE Other Respiratory History: PE 12 years ago on coumadin. 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: Neurological History: Reports: Seizure, Other (See Below) Other Neuro History: last seizure 3 years ago, epilepsy Psychiatric History: Reports: Anxiety, Bipolar, Depression, Emotional Problems, Psych Hospitalization(s) Hematologic History: Reports: B12 Deficiency, Bleeding Disorder, Iron Deficiency , Other (See Below) Other Hematologic History: factor 5 - Infectious Disease History Infectious Disease History: Reports: Chicken Pox - Past Surgical History HEENT Surgical History: Reports: None GI Surgical History: Reports: Bariatric Procedure, EGD Female Surgical History: Reports: Breast Reduction, Section, D&C, Hysterectomy, Oophorectomy, Tubal Ligation Other Oncologic Surgeries/Procedures: precancerous cells in uterous, had a COMB done Social & Family History - Family History Family Medical History: Noncontributory Cardiac: Reports: [place] Respiratory: Reports: Other (See Below) Other Respiratory Family Hisory: emphysema Psychiatric: Reports: Other (See Below) Other Psychiatric Family History: Mental illness,alzheimers Endocrine/Metabolic: Reports: Diabetes, type II Oncologic: Reports: Breast, Lung - Tobacco Use Smoking Status *Q: Current Every Day Smoker Years of Tobacco use: 28 Packs/Tins Daily: 0.5 - Caffeine Use Caffeine Use: Reports: Coffee - Recreational Drug Use Recreational Drug Use: No ED ROS GENERAL - Review of Systems Review Of Systems: ROS reveals no pertinent complaints other than HPI. ED EXAM, BEHAVIORAL HEALTH - Physical Exam Exam: See Below Exam Limited By: No Limitations General Appearance: Alert, WD/WN, Moderate Distress Eye Exam: Bilateral Eye: Normal Inspection Throat/Mouth: Normal Inspection Neck: Normal Inspection Respiratory/Chest: Lungs Clear Cardiovascular: Regular Rate, Rhythm Extremities: Normal Inspection Neurological: Alert, CN II-XII Intact, Normal Cognition, Normal Gait, No Motor/ Sensory Deficits Psychiatric: Alert, Depressed Mood, Other (She is tearful but is consolable and can even smile and) Skin Exam: Warm ( joke around and so forth), Dry COURSE, BEHAVIORAL HEALTH COMP - Course Vital Signs: Last Vital Signs Temp 36.3 C 03/06/19 01:17 Pulse 63 03/06/19 01:17 Resp 18 03/06/19 01:17 BP 143/75 H 03/06/19 01:17 Pulse Ox 100 03/06/19 01:17 Orders, Labs, Meds: Laboratory Tests 03/06/19 03/06/19 03/06/19 Range/Units 01:48 01:48 01:48 WBC 6.7 (4.5-11.0) K/uL RBC 4.92 (3.30-5.50) M/uL Hgb 11.1 L (12.0-15.0) g/dL Hct 36.0 (36.0-48.0) % MCV 73 L (80-98) fL MCH 23 L (27-31) pg MCHC 31 L (32-36) % Plt Count 291 (150-400) K/uL Neut % (Auto) 49 (36-66) % Lymph % (Auto) 41 (24-44) % [place] % (Auto) 8 H (2-6) % Eos % (Auto) 1 L (2-4) % Baso % (Auto) 0 (0-1) % Sodium 135 L (140-148) mmol/L Potassium 3.7 (3.6-5.2) mmol/L Chloride 99 L (100-108) mmol/L Carbon Dioxide 25 (21-32) mmol/L Anion Gap 14.7 H (5.0-14.0) mmol/L BUN 12 D (7-18) mg/dL Creatinine 0.6 (0.6-1.0) mg/dL Est Cr Clr Drug Dosing 123.74 mL/min Estimated GFR (MDRD) > 60 (>60) Glucose 113 H (74-106) mg/dL Calcium 8.7 (8.5-10.1) mg/dL Total Bilirubin 0.2 (0.2-1.0) mg/dL AST 32 (15-37) U/L ALT 32 (12-78) U/L Alkaline Phosphatase 120 H (46-116) U/L Total Protein 7.7 (6.4-8.2) g/dL Albumin 3.9 (3.4-5.0) g/dL Globulin 3.8 H (2.3-3.5) g/dL Albumin/Globulin Ratio 1.0 L (1.2-2.2) Salicylates 4.4 (2.0-20.0) mg/dL Urine Opiates Screen (NEGATIVE) Ur Oxycodone Screen (NEGATIVE) Urine Methadone Screen (NEGATIVE) Ur Propoxyphene Screen (NEGATIVE) Acetaminophen 0.0 L (10.0-30.0) ug/mL Ur Barbiturates Screen (NEGATIVE) Ur Tricyclics Screen (NEGATIVE) Ur Phencyclidine Scrn (NEGATIVE) Ur Amphetamine Screen (NEGATIVE) U Methamphetamines Scrn (NEGATIVE) Urine MDMA Screen (NEGATIVE) U Benzodiazepines Scrn (NEGATIVE) U Cocaine Metab Screen (NEGATIVE) U Marijuana (THC) Screen (NEGATIVE) Ethyl Alcohol mg/dL 03/06/19 03/06/19 Range/Units 01:48 01:51 WBC (4.5-11.0) K/uL RBC (3.30-5.50) M/uL Hgb (12.0-15.0) g/dL Hct (36.0-48.0) % MCV (80-98) fL MCH (27-31) pg MCHC (32-36) % Plt Count (150-400) K/uL Neut % (Auto) (36-66) % Lymph % (Auto) (24-44) % [place] % (Auto) (2-6) % Eos % (Auto) (2-4) % Baso % (Auto) (0-1) % Sodium (140-148) mmol/L Potassium (3.6-5.2) mmol/L Chloride (100-108) mmol/L Carbon Dioxide (21-32) mmol/L Anion Gap (5.0-14.0) mmol/L BUN (7-18) mg/dL Creatinine (0.6-1.0) mg/dL Est Cr Clr Drug Dosing mL/min Estimated GFR (MDRD) (>60) Glucose (74-106) mg/dL Calcium (8.5-10.1) mg/dL Total Bilirubin (0.2-1.0) mg/dL AST (15-37) U/L ALT (12-78) U/L Alkaline Phosphatase (46-116) U/L Total Protein (6.4-8.2) g/dL Albumin (3.4-5.0) g/dL Globulin (2.3-3.5) g/dL Albumin/Globulin Ratio (1.2-2.2) Salicylates (2.0-20.0) mg/dL Urine Opiates Screen Negative (NEGATIVE) Ur Oxycodone Screen Negative (NEGATIVE) Urine Methadone Screen Negative (NEGATIVE) Ur Propoxyphene Screen Negative (NEGATIVE) Acetaminophen (10.0-30.0) ug/mL Ur Barbiturates Screen Presumptive positive H (NEGATIVE) Ur Tricyclics Screen Negative (NEGATIVE) Ur Phencyclidine Scrn Negative (NEGATIVE) Ur Amphetamine Screen Negative (NEGATIVE) U Methamphetamines Scrn Negative (NEGATIVE) Urine MDMA Screen Negative (NEGATIVE) U Benzodiazepines Scrn Negative (NEGATIVE) U Cocaine Metab Screen Negative (NEGATIVE) U Marijuana (THC) Screen Negative (NEGATIVE) Ethyl Alcohol 190 mg/dL Re-Assessment/Re-Exam: This lady is known to me because 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 We talked about her getting back into counseling and to strictly avoid alcohol. Her father is present. This patient decided that she didn't want to stay around to see a counselor both she and her father felt it was safe for her to go home and I concur. She was given information on various local counseling resources Departure - Departure Time of Disposition: 02:34 Disposition: Home, Self-Care 01 Condition: Fair Clinical Impression: Depressive disorder - Discharge Information Instructions: Persistent Depressive Disorder, Adult Referrals: Waldemar Chandler MD [Primary Care Provider] - Forms: ED Department Discharge Additional Instructions: Talk with Dr Chandler about your medications. Try to set up care with a local counselor Feel free to return to the ER at any time. Avoid alcohol since it will always make depression worse.
== END 2019-03-06 02:39 | disposition home or self-care (01) ==
LOC: JP.ED 00:55
DX: F32.9 Major depressive disorder, single episode, unspecified (principal); F41.9 Anxiety disorder, unspecified; K21.9 Gastro-esophageal reflux disease without esophagitis; F17.210 Nicotine dependence, cigarettes, uncomplicated; Z88.8 Allergy status to other drugs, medicaments and biological substances; Z88.5 Allergy status to narcotic agent; Z86.718 Personal history of other venous thrombosis and embolism; Z86.711 Personal history of pulmonary embolism; Z79.01 Long term (current) use of anticoagulants; Z79.899 Other long term (current) drug therapy
CPT/HCPCS: 36415; 80053; 80305-QW; 85025; 99284; G0480

== ENCOUNTER 2019-07-05 02:01 | Inpatient (IN) | payer MEDICAID ==
[2019-07-05] MEDS ORDERED: Ondansetron 4 MG/2 ML SDV IVPUSH ONE (02:25)
[2019-07-05] MEDS ORDERED: HYDROmorphone 0.5 MG/0.5 ML Syringe IVPUSH ONE ×2 (02:25→02:48)
[2019-07-05] MEDS ORDERED: Sodium Chloride 0.9% 1,000 ML IV SCH ×2 (02:30→04:45)
[2019-07-05] MEDS ORDERED: HYDROmorphone 0.5 MG/0.5 ML Syringe ONE ×2 (02:35→02:54)
--- NOTE | 2019-07-05 02:35 | EDM.PDOC ---
ED HPI GENERAL MEDICAL PROBLEM - General Chief Complaint: Genitourinary Problem Stated Complaint: BACK PAIN Time Seen by Provider: 07/05/19 02:31 Source of Information: Reports: Patient History Limitations: Reports: No Limitations - History of Present Illness INITIAL COMMENTS - FREE TEXT/NARRATIVE: pt arrived with severe back pain and upper abdomanal pain. She is nauseated This pain did come on quite suddenly. Onset: Today, Sudden, Other ( started a couple of hours ago. ) Duration: Hour(s):, Getting Worse Location: Reports: Abdomen, Back Associated Symptoms: Reports: Nausea/Vomiting, Weakness Bilateral Flank Pain Score (Numeric/FACES): 10 - Related Data Allergies Allergy/AdvReac Type Severity Reaction Status Date / Time carbamazepine [From Tegretol] Allergy Abdominal Verified 07/05/19 03:28 Pain NSAIDS (Non-Steroidal Allergy Cannot Verified 07/05/19 03:28 Anti-Inflamma Remember meperidine HCl [From Demerol] AdvReac Shaking Verified 07/05/19 03:28 Home Meds: Home Meds Omeprazole 20 mg PO DAILY 03/06/13 [History] Phenytoin [Dilantin] 450 mg PO BEDTIME 03/06/13 [History] Topiramate [Topamax] 50 mg PO DAILY 09/02/13 [History] Venlafaxine [Effexor] 75 mg PO BID 06/02/14 [History] Carbidopa/Levodopa [Sinemet Cr 25-100 mg] 25 - 100 mg PO DAILY 07/27/14 [History ] Mirtazapine 30 mg PO DAILY 07/27/14 [History] EPINEPHrine [Epipen] 0.3 mg IM ONETIME PRN 05/07/15 [History] Apixaban [Eliquis] 1 tab PO BID 03/06/19 [History] Past Medical History HEENT History: Reports: Other (See Below) Other HEENT History: Dental issues Cardiovascular History: Reports: Blood Clots/VTE/DVT Respiratory History: Reports: PE Other Respiratory History: PE 12 years ago on coumadin. Gastrointestinal History: Reports: GERD Genitourinary History: Reports: UTI, Recurrent DISK RECOATER History: Reports: Neurological History: Reports: Seizure, Other (See Below) Other Neuro History: last seizure 3 years ago, epilepsy Psychiatric History: Reports: Anxiety, Bipolar, Depression, Emotional Problems, Psych Hospitalization(s) Hematologic History: Reports: B12 Deficiency, Bleeding Disorder, Iron Deficiency , Other (See Below) Other Hematologic History: factor 5 - Infectious Disease History Infectious Disease History: Reports: Chicken Pox - Past Surgical History HEENT Surgical History: Reports: None GI Surgical History: Reports: Bariatric Procedure, EGD Female Surgical History: Reports: Breast Reduction, Section, D&C, Hysterectomy, Oophorectomy, Tubal Ligation Other Oncologic Surgeries/Procedures: precancerous cells in uterous, had a COMB done Social & Family History - Family History Family Medical History: Noncontributory Cardiac: Reports: [place] Respiratory: Reports: Other (See Below) Other Respiratory Family Hisory: emphysema Psychiatric: Reports: Other (See Below) Other Psychiatric Family History: Mental illness,alzheimers Endocrine/Metabolic: Reports: Diabetes, type II Oncologic: Reports: Breast, Lung - Caffeine Use Caffeine Use: Reports: Coffee ED ROS GENERAL - Review of Systems Review Of Systems: See Below Constitutional: Reports: Malaise, Diaphoresis HEENT: Reports: No Symptoms Respiratory: Reports: No Symptoms Cardiovascular: Reports: No Symptoms Endocrine: Reports: No Symptoms GI/Abdominal: Reports: No Symptoms : Reports: Flank Pain, Other (hiistory of multiple infections- kidney. ) Musculoskeletal: Reports: No Symptoms ED EXAM, GI/ABD - Physical Exam Exam: See Below Text/Narrative:: pt arrived with severe pain accross her back and in her upper abdoman. She states this came on suddenly 2 hours ago. She is nauseated. Exam Limited By: No Limitations General Appearance: Alert, Anxious, Severe Distress Ears: Normal TMs Nose: Normal Inspection Throat/Mouth: Normal Inspection Head: Atraumatic Neck: Normal Inspection Respiratory/Chest: No Respiratory Distress Cardiovascular: Regular Rate, Rhythm, Tachycardia GI/Abdominal Exam: Other (pt is very tender in her upper abdomanand she is having pain accross her back. ) (Female) Exam: Deferred Rectal (Female) Exam: Deferred Back Exam: Normal Inspection Extremities: Normal Inspection Neurological: Alert, Oriented, Normal Cognition Course - Vital Signs Last Recorded V/S: Last Vital Signs Temp 35.5 C 07/05/19 03:35 Pulse 75 07/05/19 03:35 Resp 16 07/05/19 03:35 BP 171/71 H 07/05/19 03:35 Pulse Ox 100 07/05/19 03:35 - Orders/Labs/Meds Orders: Active Orders 24 hr Category Date Time Status CULTURE URINE [RM] Stat Lab 07/05/19 03:38 Received Sodium Chloride 0.9% [Normal Saline] 1,000 ml Med 07/05/19 02:30 Active IV ASDIRECTED Sodium Chloride 0.9% [Normal Saline] 1,000 ml Med 07/05/19 04:45 Ordered IV ASDIRECTED Medication Orders Sodium Chloride (Normal Saline) 1,000 mls @ 999 mls/hr IV ASDIRECTED MARK Last Admin: 07/05/19 02:45 Dose: 999 mls/hr Sodium Chloride (Normal Saline) 1,000 mls @ 999 mls/hr IV ASDIRECTED MARK Labs: Laboratory Tests 07/05/19 07/05/19 07/05/19 Range/Units 02:45 02:45 02:45 WBC 6.9 (4.5-11.0) K/uL RBC 4.64 (3.30-5.50) M/uL Hgb 10.4 L (12.0-15.0) g/dL Hct 35.0 L (36.0-48.0) % MCV 75 L (80-98) fL MCH 22 L (27-31) pg MCHC 30 L (32-36) % Plt Count 319 (150-400) K/uL Neut % (Auto) 55 (36-66) % Lymph % (Auto) 35 (24-44) % [place] % (Auto) 9 H (2-6) % Eos % (Auto) 1 L (2-4) % Baso % (Auto) 0 (0-1) % Sodium 139 L (140-148) mmol/L Potassium 3.7 (3.6-5.2) mmol/L Chloride 101 (100-108) mmol/L Carbon Dioxide 27 (21-32) mmol/L Anion Gap 14.7 H (5.0-14.0) mmol/L BUN 9 (7-18) mg/dL Creatinine 0.7 (0.6-1.0) mg/dL Est Cr Clr Drug Dosing 106.06 mL/min Estimated GFR (MDRD) > 60 (>60) Glucose 106 (74-106) mg/dL Calcium 8.6 (8.5-10.1) mg/dL Total Bilirubin 0.1 L (0.2-1.0) mg/dL AST 24 (15-37) U/L ALT 27 (12-78) U/L Alkaline Phosphatase 123 H (46-116) U/L C-Reactive Protein (0.0-0.3) mg/dL Total Protein 7.3 (6.4-8.2) g/dL Albumin 3.6 (3.4-5.0) g/dL Globulin 3.7 H (2.3-3.5) g/dL Albumin/Globulin Ratio 1.0 L (1.2-2.2) Amylase (25-115) U/L Lipase 200 (73-393) U/L Urine Color (YELLOW) Urine Appearance (CLEAR) Urine pH (5.0-8.0) Ur Specific Dairy (1.008-1.030) Urine Protein (NEGATIVE) mg/dL Urine Glucose (UA) (NEGATIVE) mg/dL Urine Ketones (NEGATIVE) mg/dL Urine Occult Blood (NEGATIVE) Urine Nitrite (NEGATIVE) Urine Bilirubin (NEGATIVE) Urine Urobilinogen (0.2-1.0) EU/dL Ur Leukocyte Esterase (NEGATIVE) Urine RBC (0-5) Urine WBC (0-5) Ur Epithelial Cells Amorphous Sediment Urine Bacteria Urine Mucus 07/05/19 07/05/19 07/05/19 Range/Units 02:45 02:49 03:30 WBC (4.5-11.0) K/uL RBC (3.30-5.50) M/uL Hgb (12.0-15.0) g/dL Hct (36.0-48.0) % MCV (80-98) fL MCH (27-31) pg MCHC (32-36) % Plt Count (150-400) K/uL Neut % (Auto) (36-66) % Lymph % (Auto) (24-44) % [place] % (Auto) (2-6) % Eos % (Auto) (2-4) % Baso % (Auto) (0-1) % Sodium (140-148) mmol/L Potassium (3.6-5.2) mmol/L Chloride (100-108) mmol/L Carbon Dioxide (21-32) mmol/L Anion Gap (5.0-14.0) mmol/L BUN (7-18) mg/dL Creatinine (0.6-1.0) mg/dL Est Cr Clr Drug Dosing mL/min Estimated GFR (MDRD) (>60) Glucose (74-106) mg/dL Calcium (8.5-10.1) mg/dL Total Bilirubin (0.2-1.0) mg/dL AST (15-37) U/L ALT (12-78) U/L Alkaline Phosphatase (46-116) U/L C-Reactive Protein 0.92 H (0.0-0.3) mg/dL Total Protein (6.4-8.2) g/dL Albumin (3.4-5.0) g/dL Globulin (2.3-3.5) g/dL Albumin/Globulin Ratio (1.2-2.2) Amylase 62 (25-115) U/L Lipase (73-393) U/L Urine Color Yellow (YELLOW) Urine Appearance Slightly cloudy A (CLEAR) Urine pH 6.0 (5.0-8.0) Ur Specific Dairy 1.010 (1.008-1.030) Urine Protein Negative (NEGATIVE) mg/dL Urine Glucose (UA) Negative (NEGATIVE) mg/dL Urine Ketones Negative (NEGATIVE) mg/dL Urine Occult Blood Negative (NEGATIVE) Urine Nitrite Negative (NEGATIVE) Urine Bilirubin Negative (NEGATIVE) Urine Urobilinogen 0.2 (0.2-1.0) EU/dL Ur Leukocyte Esterase Negative (NEGATIVE) Urine RBC 0-5 (0-5) Urine WBC 0-5 (0-5) Ur Epithelial Cells Rare Amorphous Sediment Not seen Urine Bacteria Many Urine Mucus Not seen Meds: Medications Generic Name Dose Route Start Last Admin Trade Name Freq PRN Reason Stop Dose Admin Sodium Chloride 1,000 mls @ 999 mls/hr 07/05/19 02:30 07/05/19 02:45 Normal Saline IV 999 mls/hr ASDIRECTED MARK Administration Sodium Chloride 1,000 mls @ 999 mls/hr 07/05/19 04:45 Normal Saline IV ASDIRECTED MARK Discontinued Medications Generic Name Dose Route Start Last Admin Trade Name Freq PRN Reason Stop Dose Admin Hydromorphone HCl 0.5 mg 07/05/19 02:25 07/05/19 02:46 Dilaudid IVPUSH 07/05/19 02:26 0.5 mg ONETIME ONE Administration Hydromorphone HCl 0.5 mg 07/05/19 02:48 07/05/19 02:57 Dilaudid IVPUSH 07/05/19 02:49 0.5 mg ONETIME ONE Administration Hydromorphone HCl 1 mg 07/05/19 03:54 07/05/19 04:09 Dilaudid IVPUSH 07/05/19 03:55 1 mg ONETIME ONE Administration Hydromorphone HCl 1 mg 07/05/19 04:34 Dilaudid IVPUSH 07/05/19 04:35 ONETIME ONE Lorazepam 0.5 mg 07/05/19 03:56 07/05/19 04:07 Ativan IVPUSH 07/05/19 03:57 0.5 mg ONETIME ONE Administration Ondansetron HCl 4 mg 07/05/19 02:25 07/05/19 02:47 Zofran IVPUSH 07/05/19 02:26 Not Given ONETIME ONE Ondansetron HCl 4 mg 07/05/19 02:50 07/05/19 02:57 Zofran Odt PO 07/05/19 02:51 4 mg ONETIME ONE Administration - Re-Assessments/Exams Free Text/Narrative Re-Assessment/Exam: 07/05/19 04:09 pt had very little blood in the urine , there was some bacteria. Her crp is mildly elevated. Her wbc is not elevated. 07/05/19 04:35 cat scan of the abdoman shows a probable small bowel volulus. Her abdoman has become more tender, She is very guarded in the upper abdoman. Departure - Departure Time of Disposition: 04:40 Disposition: Admitted As Inpatient 64 Condition: Fair Clinical Impression: Small bowel volvulus - Discharge Information Referrals: Waldemar Chandler MD [Primary Care Provider] - Forms: ED Department Discharge Care Plan Goals: admit to Dr Herman. Sepsis Event Note - Focused Exam Vital Signs: Vital Signs Temp Pulse Resp BP Pulse Ox 07/05/19 03:35 35.5 C 75 16 171/71 H 100 Date Exam was Performed: 07/05/19 Time Exam was Performed: 04:39 - My Orders Last 24 Hours: My Active Orders 07/05/19 02:30 Sodium Chloride 0.9% [Normal Saline] 1,000 ml IV ASDIRECTED 07/05/19 03:38 CULTURE URINE [RM] Stat 07/05/19 04:45 Sodium Chloride 0.9% [Normal Saline] 1,000 ml IV ASDIRECTED - Assessment/Plan Last 24 Hours: My Active Orders 07/05/19 02:30 Sodium Chloride 0.9% [Normal Saline] 1,000 ml IV ASDIRECTED 07/05/19 03:38 CULTURE URINE [RM] Stat 07/05/19 04:45 Sodium Chloride 0.9% [Normal Saline] 1,000 ml IV ASDIRECTED
[2019-07-05] MEDS ORDERED: Ondansetron 4 MG Tab.DIS ONE (02:39)
[2019-07-05] MEDS ORDERED: Ondansetron 4 MG Tab.DIS PO ONE (02:50)
[2019-07-05] MEDS ORDERED: HYDROmorphone 1 MG/ML Syringe IVPUSH ONE ×2 (03:54→04:34)
[2019-07-05] MEDS ORDERED: LORazepam 2 MG/ML SDV IVPUSH ONE (03:56)
[2019-07-05] MEDS ORDERED: LORazepam 2 MG/ML SDV ONE (04:00)
[2019-07-05] MEDS ORDERED: HYDROmorphone 1 MG/ML Syringe ONE ×2 (04:01→04:42)
--- NOTE | 2019-07-05 04:20 | CRLCT ---
INDICATION: Back and upper abdominal pain TECHNIQUE: Axial images were obtained from the diaphragm to the pubic symphysis. Reformats were obtained in the coronal and sagittal plane. IV Contrast: None Oral Contrast: None COMPARISON: Abdomen and pelvis CT 09/03/2017 FINDINGS: Lower chest: Discoid atelectasis right middle lobe. Liver: Normal in contour with a subcentimeter cyst at the dome. Additional subcentimeter hypodense lesions within the right lobe are too small for characterization although similar to the 2018 study. Gallbladder and bile ducts: Status post cholecystectomy with dilation of the common duct measuring up to 17 millimeters. Spleen: Unremarkable. Normal in size without mass. Pancreas: Unremarkable. No mass or inflammation. Adrenal glands: Slight fusiform prominence of the adrenal glands, similar to the prior exam. Kidneys: Unremarkable. No masses, stones, or hydronephrosis. Vasculature: Unremarkable. GI tract: Status post gastric bypass. No dilated loops of bowel, however there is prominent mesenteric edema within a segment of the mesentery anteriorly. On the exam there is some swirling of the mesentery suggesting some twisting of the mesentery at this level (2, 56-78). Separately, note is made of a midline position of the cecum. Pelvis: Bladder unremarkable. Status posthysterectomy. Bones: Unremarkable for age. IMPRESSION: 1. Prominent edema within a segment of the small-bowel mesentery with note made of some swirling of the vasculature suspicious for twisting of the mesentery/small bowel volvulus. No evidence of obstruction. 2. Other incidental findings as noted above. Please note that all CT scans at this facility use dose modulation, iterative reconstruction, and/or weight-based dosing when appropriate to reduce radiation dose to as low as reasonably achievable. Dictated by Adriel Edward MD @ Jul 05 2019 4:06AM Signed by Dr. Adriel Edward @ Jul 05 2019 4:18AM
[2019-07-05] MEDS ORDERED: Succinylcholine 200 MG/10 ML MDV ONE (05:04)
[2019-07-05] MEDS ORDERED: Neostigmine Methylsulfate 1 MG/ML 5 ML Syringe ONE (05:04)
[2019-07-05] MEDS ORDERED: Dexamethasone 4 MG/ML SDV ONE (05:04)
[2019-07-05] MEDS ORDERED: Propofol 200 MG/20 ML SDV ONE (05:04)
[2019-07-05] MEDS ORDERED: Rocuronium 50 MG/5 ML Vial ONE (05:04)
[2019-07-05] MEDS ORDERED: Glycopyrrolate 0.2 MG/ML 5 ML MDV ONE (05:04)
[2019-07-05] MEDS ORDERED: Ondansetron 4 MG/2 ML SDV ONE (05:04)
[2019-07-05] MEDS ORDERED: fentaNYL 250 MCG/5 ML SDV ONE ×2 (05:07→05:47)
[2019-07-05] MEDS ORDERED: Bupivacaine 0.5% 50 ML MDV ONE (05:39)
[2019-07-05] MEDS ORDERED: Lidocaine 1% with EPINEPHrine 1:100,000 50 ML MDV ONE (05:39)
[2019-07-05] MEDS ORDERED: cefOXitin 2 GM Vial ONE (05:46)
[2019-07-05] MEDS ORDERED: Sodium Bicarbonate 8.4% 50 MEQ/50 ML Syringe ONE (05:48)
[2019-07-05] MEDS ORDERED: Meropenem 500 MG SDV ONE (06:19)
[2019-07-05] MEDS ORDERED: Lactated Ringers 1,000 ML ONE (06:22)
[2019-07-05] MEDS ORDERED: Meropenem 500 MG SDV IRR ONE (06:50)
[2019-07-05] MEDS ORDERED: Bupivacaine 0.5% 50 ML MDV INJECT ONE (07:15)
[2019-07-05] MEDS ORDERED: Lidocaine 1% with EPINEPHrine 1:100,000 50 ML MDV INJECT ONE (07:15)
[2019-07-05] MEDS ORDERED: Naloxone 0.4 MG/ML SDV IV PRN (08:25)
[2019-07-05] MEDS ORDERED: Acetaminophen 500 MG Tab PO PRN (08:28)
[2019-07-05] MEDS ORDERED: Cyclobenzaprine 10 MG Tab PO PRN (08:28)
[2019-07-05] MEDS ORDERED: hydrOXYzine HCL 100 MG/2 ML SDV IM PRN (08:28)
[2019-07-05] MEDS ORDERED: Ondansetron 4 MG/2 ML SDV IVPUSH PRN (08:28)
[2019-07-05] MEDS ORDERED: Labetalol 20 MG/4 ML Syringe IVPUSH PRN (08:28)
[2019-07-05] MEDS ORDERED: Metoclopramide 10 MG/2 ML SDV IVPUSH PRN (08:28)
[2019-07-05] MEDS: Dextrose 5%-Lactated Ringers 1,000 ML IV SCH ×3 (09:06→23:48)
[2019-07-05] MEDS: HYDROmorphone/Normal Saline 15 MG/30 ML PCA IV PRN (09:08)
[2019-07-05] MEDS: SCOPOLAMINE PATCH CHECK TOP SCH (09:15)
[2019-07-05] MEDS ORDERED: Pantoprazole 40 MG Vial IVPUSH SCH (10:00)
[2019-07-05] MEDS ORDERED: Topiramate 25 MG Tab PO SCH (11:00)
[2019-07-05] MEDS: cefOXitin 2 GM in Sodium Chloride 0.9% 50 ML IV SCH ×3 (11:52→23:46)
[2019-07-05] MEDS: Acetaminophen 500 MG Tab PO SCH ×2 (13:55→21:01)
[2019-07-05] MEDS ORDERED: MVI, Adult with Vitamin K 10 ML, Thiamine 200 MG, Chromium/Copper/Mang/Selen/Zn 1 ML in... IV SCH ×4 (16:00)
[2019-07-05] MEDS: Apixaban 5 MG Tab PO SCH (20:57)
[2019-07-05] MEDS: Mirtazapine 15 MG Tab PO SCH (20:57)
[2019-07-05] MEDS: Carbidopa/Levodopa 25-100 MG Tab PO SCH (20:58)
[2019-07-05] MEDS: Venlafaxine 75 MG Tab PO SCH (20:58)
[2019-07-05] MEDS: PHENYTOIN 50 MG PO SCH (20:59)
[2019-07-05] MEDS: Topiramate 25 MG Tab PO SCH (20:59)
[2019-07-06] MEDS ORDERED: Iopamidol 612 MG/ML 50 ML SDV PO PRN (01:13)
[2019-07-06] MEDS: Dextrose 5%-Lactated Ringers 1,000 ML IV SCH (06:03)
[2019-07-06] MEDS: cefOXitin 2 GM in Sodium Chloride 0.9% 50 ML IV SCH ×3 (06:03→22:28)
[2019-07-06] MEDS: Acetaminophen 500 MG Tab PO SCH ×3 (06:04→21:26)
[2019-07-06] MEDS ORDERED: Dextrose 5%-Lactated Ringers 1,000 ML IV SCH (07:30)
[2019-07-06] MEDS: Potassium Phos in 0.9 % NaCl 15 MMOL in Premix Bag 1 BAG IV SCH ×6 (08:48→15:57)
[2019-07-06] MEDS: Magnesium Sulfate/Water 2 GM in Premix Bag 1 BAG IV SCH ×3 (08:48→19:57)
[2019-07-06] MEDS: Venlafaxine 75 MG Tab PO SCH ×2 (09:05→21:22)
[2019-07-06] MEDS: Pantoprazole 40 MG Tab.CR PO SCH (09:05)
[2019-07-06] MEDS: SCOPOLAMINE PATCH CHECK TOP SCH (09:06)
[2019-07-06] MEDS: Apixaban 5 MG Tab PO SCH ×2 (09:06→21:24)
[2019-07-06] MEDS: Sodium Ferric Gluconate Cmplex 250 MG in Sodium Chloride 0.9% 100 ML IV SCH (11:05)
[2019-07-06] MEDS: diphenhydrAMINE 50 MG/ML SDV IVPUSH PRN (11:24)
--- NOTE | 2019-07-06 15:04 | PN ---
DATE OF SERVICE: 07/06/2019 The patient has been afebrile with stable vital signs. Urine output has been satisfactory and her upper GI x-ray looked good. We will begin a step 2 diet today. Her potassium, magnesium, and iron are all marginally low. These will be supplemented with IV over the next couple days. We will leave her on the AEROTRIANGULATION SPECIALIST for today and then maximize activity and work with pulmonary toilet. Wilbur Herman MD /[id number]
[2019-07-06] MEDS: HYDROmorphone/Normal Saline 15 MG/30 ML PCA IV PRN (15:38)
[2019-07-06] MEDS: MVI, Adult with Vitamin K 10 ML, Thiamine 200 MG, Chromium/Copper/Mang/Selen/Zn 1 ML in... IV SCH ×4 (18:14)
[2019-07-06] MEDS: Carbidopa/Levodopa 25-100 MG Tab PO SCH (21:25)
[2019-07-06] MEDS: Mirtazapine 15 MG Tab PO SCH (21:25)
[2019-07-06] MEDS: Topiramate 25 MG Tab PO SCH (21:26)
[2019-07-06] MEDS: PHENYTOIN 50 MG PO SCH (21:48)
[2019-07-07] MEDS: Magnesium Sulfate/Water 2 GM in Premix Bag 1 BAG IV SCH ×4 (02:15→20:02)
[2019-07-07] MEDS: cefOXitin 2 GM in Sodium Chloride 0.9% 50 ML IV SCH ×2 (04:20→09:46)
[2019-07-07] MEDS: Acetaminophen 500 MG Tab PO SCH ×3 (05:55→22:13)
[2019-07-07] MEDS ORDERED: Ondansetron 4 MG Tab.DIS PO PRN (07:05)
[2019-07-07] MEDS: Pantoprazole 40 MG Tab.CR PO SCH (07:26)
[2019-07-07] MEDS ORDERED: Cyanocobalamin (Vitamin B12) 1,000 MCG/ML SDV IM ONE (09:00)
[2019-07-07] MEDS: SCOPOLAMINE PATCH CHECK TOP SCH (09:45)
[2019-07-07] MEDS: Docusate Sodium 100 MG Cap PO SCH ×2 (09:49→20:04)
[2019-07-07] MEDS: Bisacodyl 5 MG Tab PO SCH ×2 (09:49→20:04)
[2019-07-07] MEDS: Venlafaxine 75 MG Tab PO SCH ×2 (09:50→20:05)
[2019-07-07] MEDS: Apixaban 5 MG Tab PO SCH ×2 (09:50→20:06)
--- NOTE | 2019-07-07 09:59 | CR ---
[facility] CLINICAL HISTORY: Postbariatric surgery FINDINGS: Patient swallowed water-soluble contrast. The esophagus cleared. There is no evidence of leakage from gastric remanent. There was filling of the proximal to mid small bowel loops the 15 minute delay. The there is some persistent contrast within the gastric remanent. Impression: No evidence of extravasation or obstruction post bariatric surgery
[2019-07-07] MEDS: Sodium Ferric Gluconate Cmplex 250 MG in Sodium Chloride 0.9% 100 ML IV SCH (10:37)
[2019-07-07] MEDS: HYDROmorphone 2 MG Tab PO PRN ×3 (10:58→22:13)
[2019-07-07] MEDS ORDERED: Venlafaxine 75 MG Tab PO ONE (11:00)
[2019-07-07] MEDS: diphenhydrAMINE 50 MG/ML SDV IVPUSH PRN (12:36)
--- NOTE | 2019-07-07 12:53 | PN ---
DATE OF SERVICE: 07/07/2019 SUBJECTIVE: Adela is postoperative day #2. She states pain is controlled and she has been up ambulating, using her incentive spirometer. Vital signs stable. Oral intake 2340, urine output 3850. REVIEW OF SYSTEMS: Remainder of review of systems negative for any pertinent positives and negatives. OBJECTIVE: GENERAL: Adela Scott is a pleasant 43-year-old female. VITAL SIGNS: TPR is 98, 71, 16, blood pressure 114/57. HEENT: Negative. NECK: Supple. HEART: Regular rate and rhythm. LUNGS: Clear. ABDOMEN: Dressings dry and intact. Abdominal binder is on. EXTREMITIES: Without peripheral edema. ASSESSMENT: Exploratory laparotomy with: 1. Reduction of small bowel volvulus and closure of internal hernia. 2. Small bowel resection. 3. Separate enterostomy and removal of small and re-establish small bowel Emerita-en-Y anatomy. 4. Small bowel strictureplasty. 5. Right colectomy. 6. Placement of Interceed mesh. POSTOPERATIVE DIAGNOSES: 1. Small bowel obstruction associated with small bowel volvulus and ischemia of the Emerita limb, cecal volvulus, and physical distortion, deserialization of the cecum. 2. 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 3. Separate stricture at the mid common limb secondary to inflammation of the bowel at part of the volvulus. Date of surgery: 07/05/2019. Surgeon: Wilbur Herman MD. PLAN: 1. Step 3 gastric bypass diet. 2. Dilaudid 2 mg q.4 hours p.r.n. pain. 3. Dulcolax 2 tablets b.i.d. until the patient has bowel movement. 4. Colace 100 mg b.i.d. 5. May shower. 6. Continue good pulmonary toilet. 7. We will evaluate p.r.n. or in a.m. Marine Talley PA-C /[id number]
[2019-07-07] MEDS: MVI, Adult with Vitamin K 10 ML, Thiamine 200 MG, Chromium/Copper/Mang/Selen/Zn 1 ML in... IV SCH ×4 (16:26)
[2019-07-07] MEDS: PHENYTOIN 50 MG PO SCH (20:06)
[2019-07-07] MEDS: Carbidopa/Levodopa 25-100 MG Tab PO SCH (20:07)
[2019-07-07] MEDS: Mirtazapine 15 MG Tab PO SCH (20:07)
[2019-07-07] MEDS: Topiramate 25 MG Tab PO SCH (20:07)
[2019-07-08] MEDS: Magnesium Sulfate/Water 2 GM in Premix Bag 1 BAG IV SCH (02:30)
[2019-07-08] MEDS: HYDROmorphone 2 MG Tab PO PRN ×5 (04:37→23:24)
[2019-07-08] MEDS: Acetaminophen 500 MG Tab PO SCH ×3 (05:08→21:19)
[2019-07-08] MEDS: Pantoprazole 40 MG Tab.CR PO SCH (07:32)
[2019-07-08] MEDS ORDERED: Sodium Chloride 0.9% 10 ML Syringe IV PRN (08:04)
[2019-07-08] MEDS: Bisacodyl 5 MG Tab PO SCH ×2 (08:15→21:19)
[2019-07-08] MEDS: Apixaban 5 MG Tab PO SCH ×2 (08:15→21:19)
[2019-07-08] MEDS: Venlafaxine 75 MG Tab PO SCH ×2 (08:15→21:19)
[2019-07-08] MEDS: Docusate Sodium 100 MG Cap PO SCH ×2 (08:16→21:18)
[2019-07-08] MEDS ORDERED: Polyethylene Glycol 3350 Powder 119 GM Bottle PO ONE (09:00)
--- NOTE | 2019-07-08 09:42 | PN ---
DATE OF SERVICE: 07/08/2019 SUBJECTIVE: Adela has not had a bowel movement. She is not passing any flatus. She is up ambulating. Pain is controlled. Oral intake 1710. Urine output 6700. REVIEW OF SYSTEMS: Remainder of review of systems negative for any pertinent positives and negatives. OBJECTIVE: GENERAL: Adela Scott is a pleasant 43-year-old female. She is alert and orientated. Color pale. VITAL SIGNS: TPR is 98.6, 65, 16, blood pressure 139/70. HEENT: Negative. NECK: Supple. HEART: Regular rate and rhythm. LUNGS: Clear. ABDOMEN: Dressings dry and intact. Aquacel dressings on and abdominal binder is on. EXTREMITIES: Without peripheral edema. ASSESSMENT: Exploratory laparotomy with: 1. Reduction of small bowel volvulus and closure of internal hernia. 2. Small bowel resection. 3. Separate enterostomy and removal of small and re-establish small bowel Emerita-en-Y anatomy. 4. Small bowel strictureplasty. 5. Right colectomy. 6. Placement of Interceed mesh. PLAN: 1. Saline lock IV. 2. MiraLax 119 g 1 time today. 3. Plan discharge in a.m. if the patient has bowel movement. Marine Talley PA-C /[id number]
[2019-07-08] MEDS: Mirtazapine 15 MG Tab PO SCH (21:19)
[2019-07-08] MEDS: Carbidopa/Levodopa 25-100 MG Tab PO SCH (21:19)
[2019-07-08] MEDS: Topiramate 25 MG Tab PO SCH (21:20)
[2019-07-08] MEDS: PHENYTOIN 50 MG PO SCH (21:20)
[2019-07-09] MEDS: Acetaminophen 500 MG Tab PO SCH (05:48)
[2019-07-09 07:28] VITALS: BP 131/64; PULSE 73
[2019-07-09] MEDS: Pantoprazole 40 MG Tab.CR PO SCH (07:29)
[2019-07-09] MEDS ORDERED: Magnesium Hydroxide 400 MG/5 ML Susp 30 ML Cup PO PRN (07:47)
[2019-07-09] MEDS: Venlafaxine 75 MG Tab PO SCH (08:59)
[2019-07-09] MEDS: Docusate Sodium 100 MG Cap PO SCH (08:59)
[2019-07-09] MEDS: Bisacodyl 5 MG Tab PO SCH (08:59)
[2019-07-09] MEDS: Apixaban 5 MG Tab PO SCH (08:59)
--- NOTE | 2019-07-09 11:25 | DISCH ---
ADMISSION DIAGNOSES: Partial small bowel obstruction, status post Emerita-en-Y gastric bypass surgery, unspecified surgical malabsorption, B12 deficiency, chronic pain, factor V deficiency, history of deep vein thrombosis, tobacco use disorder, depression disorder, bipolar disorder. DISCHARGE DIAGNOSES: Exploratory laparotomy with: 1. Reduction of small bowel volvulus and closure of internal hernia. 2. Small bowel resection. 3. Separate enterostomy and removal of small bowel to re-establish small bowel Emerita-en-Y anatomy. 4. Small bowel strictureplasty. 5. Right colectomy. 6. Placement of Interceed mesh. POSTOPERATIVE DIAGNOSES: 1. Small bowel obstruction associated with small bowel volvulus and ischemia of the Emerita limb, cecal volvulus and physical distortion, deserialization of the cecum. 2. Stricture of pre-existing jejunojejunostomy and part of the pancreatic limb. 3. Separate stricture at the mid common limb secondary to inflammation of the bowel at part of the volvulus. Date of Surgery: 07/05/2019. Surgeon: Wilbur Herman MD. HISTORY: Adela Scott presented to the emergency room on 07/05/2019 with severe abdominal pain. After preoperative evaluation and discussion of possible risks and possible complications, she wished to proceed with surgical procedure. HOSPITAL COURSE: Adela had her surgery on 07/05/2019. She had no operative complications. On postop day #1, her IV was discontinued. She was started on a clear liquid diet. On postop day #2, she continued with MOBILE PATROL OFFICER and on postop day #3, she was started on bowel stimulation. Diet was advanced. Her activity was good. She was passing flatus. On 07/08, she was given MiraLax 119 g one time. She continued to pass flatus, but did not have a bowel movement. She was able to be discharged to home on 07/09/2019. PHYSICAL EXAMINATION: GENERAL: Adela Scott is a 43-year-old female. VITAL SIGNS: Height is 5 feet 9 inches, weight is 160 pounds. TPR is 99.1, 73, 16. Blood pressure 131/64. HEENT: Negative. NECK: Supple. HEART: Regular rate and rhythm. LUNGS: Clear. ABDOMEN: Aquacel dressing is on. Abdominal binder is on. EXTREMITIES: Without peripheral edema. DISPOSITION: Discharged to home. CONDITION: Stable and improving. FOLLOWUP APPOINTMENT: With Marine Talley PA-C, on 07/14/2019 at 11 a.m. HOME MEDICATIONS: 1. Tylenol Extra Strength 1000 mg q.8 hours scheduled. 2. Dilaudid 2 mg every 6 hours p.r.n. severe pain, #28. 3. Zofran ODT 4 mg every 4 hours p.r.n. nausea. 4. She is to resume her home medication of Eliquis 5 mg oral twice daily. 5. Sinemet 25/100 mg 1 tablet at bedtime. 6. EpiPen as directed. 7. Mirtazapine 30 mg at bedtime. 8. Omeprazole 20 mg daily. 9. Dilantin 450 mg oral at bedtime. 10.Topamax 50 mg at bedtime. 11.Effexor 150 mg before breakfast and Effexor 75 mg at bedtime. DIET: Drink 8 to 10 glasses of water a day. Full liquid diet for 5 days and gradually advance to step 3 gastric bypass diet. ACTIVITY: No lifting greater than 10 pounds for 6 weeks. Walk at least 6 times inside your home daily. Driving: Do not drive for 1 week and while on narcotic pain medication. Shower/bathing: May shower. DISCHARGE INSTRUCTIONS: 1. Notify provider if any fever, increased pain, nausea, or vomiting. Keep site clean and dry. Wear abdominal binder for 6 weeks and then as tolerated. 2. Take off Aquacel bandage on 07/11/2019. SPECIAL INSTRUCTION: Use incentive spirometer 10 times every hour while awake for 1 week.
--- NOTE | 2019-07-14 11:10 | OR ---
DATE OF PROCEDURE: 07/05/2019 SURGEON: Wilbur Herman MD PREOPERATIVE DIAGNOSIS: Small bowel obstruction. POSTOPERATIVE DIAGNOSES: 1. Small bowel obstruction associated with small bowel volvulus and ischemic end of Emerita limb. 2. 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 3. Separate stricture involving mid common limb secondary to creasing of bowel at point of cecal volvulus. OPERATIVE PROCEDURES: Exploratory laparotomy with: 1. Reduction of small bowel volvulus and closure of internal hernia (35962). 2. Small bowel resection (36889). 3. Separate enteroenterostomy to reestablish small bowel Emerita-en-Y anatomy (20807). 4. Small bowel stricturoplasty (94078). 5. Right hemicolectomy (42692). 6. Placement of Interceed mesh to limit recurrent adhesion formation between pelvic and abdominal wall and underlying viscera (99747). ANESTHESIA: General. INDICATIONS FOR PROCEDURE: The patient was admitted overnight with a picture of small bowel obstruction. After preoperative evaluation and discussion, she wished to proceed with exploratory laparotomy with release of small bowel obstruction with possible lysis of adhesions and possible bowel resection. Potential risks including bleeding, infection, injury to underlying viscera, leaks from GI tract closures, problems with recurrence of obstruction over time were all reviewed, and the patient wishes to proceed. DETAILS OF PROCEDURE: The patient was taken to the operating room, and after general endotracheal anesthesia was induced, Hill catheter was inserted, and the abdomen was prepped and draped. An incision from the umbilicus a little bit more than a handsbreadth toward the xiphoid was made and carried down through the full-thickness abdominal wall. Upon entering the peritoneal cavity, 2 specific areas of bowel were encountered, first was that the area of the jejunojejunostomy had rotated underneath its mesenteric defect in a [id number] direction. At this area was reduced back into a normal anatomic position, it was noted the Emerita limb was ischemic at the end of the segment of bowel as it entered the jejunojejunostomy, thus requiring the jejunojejunostomy to be resected. The second problem had to do with an obvious chronic cecal volvulus with the cecum rotated well toward the left upper quadrant, and, as this was reduced, there was noted to be creasing and stricturing of the distal aspect of the common limb as it coursed over the point of the cecal volvulus and adjacent mesentery. At this point, 3 components going to the jejunojejunostomy were resected with a MELISSA stapler. The underlying mesentery was divided with MELISSA stapler as well. GI tract continuity was initiated with an anastomosis between what had been the biliopancreatic limb to the common limb with an internal firing of the Endo-MELISSA 60 mm stapler. Common opening was then closed transversely with the same stapler and angles of anastomosis reinforced with 3-0 Vicryl stitch. The Emerita-en-Y anatomy was then reconstructed with the Emerita limb then being anastomosed roughly 20 cm beyond the first small bowel anastomosis with the same sequence. At the point, the combined mesenteric defect in that area was closed with a 2-0 silk stitch to provide some permanency. The area of the small bowel stricturing in the distal common limb was then treated by means of a stricturoplasty with the small bowel being flipped over at the point of stricture on itself and a small opening made in the antimesenteric border. The MELISSA stapler was then placed with one arm of the stapler on each side of the bowel and initially 60 mm staple line was placed and another internal staple line of 30 mm. Common opening was then closed transversely with a MELISSA stapler. The angles of anastomosis in this case were reinforced with some 3-0 Vicryl stitch, and there was no mesenteric defect. Attention was then taken to the right colectomy, which appeared to be the most appropriate means of treating the cecal volvulus in this relatively young patient. The distalmost small bowel was divided with a MELISSA stapler and the cecum and ascending colon were then freed up after division of the lateral peritoneal reflection, mobilizing those areas medially, as well as the hepatic flexure, with care taken to avoid injury to the right ureter and underlying duodenum. Proximal transverse colon was then divided with the MELISSA stapler as well and mesentery between the 2 points were divided with combination of san and mesenteric MELISSA loads and the specimen delivered from the field. Ileocolic anastomosis was then accomplished with 2 internal firings of the MELISSA 60 mm stapler. Common opening was then closed transversely with 2 firings of the MELISSA stapler as well and the angles of anastomosis reinforced with 3-0 Vicryl stitch. The underlying mesenteric defect was closed with 3-0 Vicryl stitch as well. At that point, no further problems were noted. The colon anastomosis was reinforced with some fibrin sealant and the abdomen area irrigated with antibiotic-containing saline solution. A 10-Yi Surinder- Bernstein drain was taken through a stab wound in the right flank and taken across the colic gutter and from there into the pelvis. To limit recurrent adhesion formation between the pelvic and abdominal wall and the underlying viscera, Interceed mesh was placed underneath the incision and from there down toward the pelvis. The midline fascia was then approximated with #2 Vicryl stitch and the subcutaneous tissue with 2 layers of 3-0 and 4-0 Vicryl stitch deep and pepper for the skin. Dressing was applied. The patient was taken to the recovery room in satisfactory condition. Wilbur Herman MD /[id number]
== END 2019-07-09 10:00 | disposition home or self-care (01) | DRG 327 ==
LOC: JP.ED 02:01 → JP.SDS 04:42 → JP.MS 07:30
PROVIDERS: ADMIT Surgery; ATTEND Surgery
PROC: 0D160ZA Bypass Stomach to Jejunum, Open Approach (ICD-10-PCS; principal; 2019-07-05)
PROC: 0DTF0ZZ Resection of Right Large Intestine, Open Approach (ICD-10-PCS; 2019-07-05)
PROC: 0DQV0ZZ Repair Mesentery, Open Approach (ICD-10-PCS; 2019-07-05)
PROC: 3E0M05Z Introduction of Adhesion Barrier into Peritoneal Cavity, Open Approach (ICD-10-PCS; 2019-07-05)
DX: K56.2 Volvulus (principal); D68.51 Activated protein C resistance; K91.2 Postsurgical malabsorption, not elsewhere classified; K55.9 Vascular disorder of intestine, unspecified; K46.0 Unspecified abdominal hernia with obstruction, without gangrene; K21.9 Gastro-esophageal reflux disease without esophagitis; G40.909 Epilepsy, unspecified, not intractable, without status epilepticus; G89.29 Other chronic pain; F17.200 Nicotine dependence, unspecified, uncomplicated; F31.9 Bipolar disorder, unspecified; F41.9 Anxiety disorder, unspecified; E53.8 Deficiency of other specified B group vitamins; Z90.710 Acquired absence of both cervix and uterus; Z98.890 Other specified postprocedural states; Z88.8 Allergy status to other drugs, medicaments and biological substances; Z79.01 Long term (current) use of anticoagulants; Z79.899 Other long term (current) drug therapy; Z88.6 Allergy status to analgesic agent; Z98.84 Bariatric surgery status; Z90.721 Acquired absence of ovaries, unilateral; Z98.51 Tubal ligation status
CPT/HCPCS: 36415; 74176; 74240; 74246-26; 80048; 80053; 80185; 81001; 82150; 82728; 83690; 83735; 84100; 85025; 86140; 87086; 87088; 87186; 88307; 94762; 96361; 96374; 96375; 96376; 99285-25; A9270-GY; C9113; J0330; J0694; J1100; J1170; J1200; J2060; J2185; J2405; J2704; J2710; J2765; J2916; J3010; J3411; J3420; J3475; J3490; J7030; J7050; J7120; J7121; Q9967

== ENCOUNTER 2019-11-06 06:11 | Inpatient (IN) | payer MEDICAID, MEDICARE ==
[2019-11-06] MEDS ORDERED: Acetaminophen 500 MG Tab PO ONE (06:45)
[2019-11-06] MEDS ORDERED: Bupivacaine 0.5%/EPINEPHrine 1:200,000 50 ML MDV ONE (06:52)
[2019-11-06] MEDS ORDERED: Meropenem 500 MG SDV ONE (06:52)
[2019-11-06] MEDS ORDERED: diphenhydrAMINE 25 MG Cap PO PRN (06:57)
[2019-11-06] MEDS ORDERED: Naloxone 0.4 MG/ML SDV IVPUSH PRN (06:57)
[2019-11-06] MEDS ORDERED: diphenhydrAMINE 50 MG/ML SDV IVPUSH PRN ×2 (06:57→14:43)
[2019-11-06] MEDS ORDERED: Ondansetron 4 MG/2 ML SDV IVPUSH PRN (06:57)
[2019-11-06] MEDS ORDERED: HYDROmorphone/Normal Saline 15 MG/30 ML PCA IV SCH ×2 (07:00→19:33)
[2019-11-06] MEDS ORDERED: fentaNYL 250 MCG/5 ML SDV ONE ×2 (07:12→08:55)
[2019-11-06] MEDS ORDERED: Neostigmine Methylsulfate 1 MG/ML 5 ML Syringe ONE (07:13)
[2019-11-06] MEDS ORDERED: Succinylcholine 200 MG/10 ML MDV ONE (07:13)
[2019-11-06] MEDS ORDERED: Propofol 200 MG/20 ML SDV ONE (07:13)
[2019-11-06] MEDS ORDERED: Glycopyrrolate 0.2 MG/ML 5 ML MDV ONE (07:13)
[2019-11-06] MEDS ORDERED: Rocuronium 50 MG/5 ML Vial ONE (07:13)
[2019-11-06] MEDS ORDERED: Dexamethasone 4 MG/ML SDV ONE (07:13)
[2019-11-06] MEDS ORDERED: Ondansetron 4 MG/2 ML SDV ONE (07:13)
[2019-11-06] MEDS ORDERED: Albuterol/Ipratropium 3.0-0.5 MG/3 ML Neb Soln NEB ONE (07:15)
[2019-11-06] MEDS: Dextrose 5%-Lactated Ringers 1,000 ML IV SCH ×3 (07:19→17:18)
[2019-11-06] MEDS ORDERED: cefOXitin 2 GM in Sodium Chloride 0.9% 50 ML IV ONE (08:00)
[2019-11-06] MEDS ORDERED: Ketamine 500 MG/5 ML MDV IV SCH (08:30)
[2019-11-06] MEDS ORDERED: Ketamine 50 MG in Sodium Chloride 0.9% 49.5 ML IV SCH (08:30)
[2019-11-06] MEDS ORDERED: Ropivacaine 34 ML, dexAMETHasone 8 MG, EPINEPHrine 0.4 MG, Sodium Chloride 0.9% 43.6 ML NERVRT SCH ×4 (08:30)
[2019-11-06] MEDS ORDERED: Lidocaine 1% 50 ML MDV ONE (08:54)
[2019-11-06] MEDS ORDERED: hydrOXYzine HCL 100 MG/2 ML SDV IM ONE (10:00)
[2019-11-06] MEDS: diphenhydrAMINE 25 MG Cap PO PRN (14:53)
[2019-11-06] MEDS: Venlafaxine 75 MG Tab PO SCH ×2 (14:53→22:05)
[2019-11-06] MEDS ORDERED: Pantoprazole 40 MG Vial IV SCH (16:00)
[2019-11-06] MEDS: hydrOXYzine HCL 100 MG/2 ML SDV IM PRN (16:23)
[2019-11-06] MEDS: ceFAZolin 2 GM in Premix Bag 1 BAG IV SCH (16:25)
[2019-11-06] MEDS: Sodium Ferric Gluconate Cmplex 250 MG in Sodium Chloride 0.9% 100 ML IV SCH (17:17)
[2019-11-06] MEDS: Cyclobenzaprine 10 MG Tab PO PRN (17:30)
[2019-11-06] MEDS ORDERED: Acetaminophen 1,000 MG in Premix Bag 1 BAG IV ONE (19:31)
[2019-11-06] MEDS: Topiramate 25 MG Tab PO SCH (22:05)
[2019-11-06] MEDS: Mirtazapine 15 MG Tab PO SCH (22:05)
[2019-11-06] MEDS: Carbidopa/Levodopa 25-100 MG Tab PO SCH (22:05)
[2019-11-06] MEDS: Apixaban 5 MG Tab PO SCH (22:05)
[2019-11-07] MEDS: Dextrose 5%-Lactated Ringers 1,000 ML IV SCH ×4 (00:26→16:33)
[2019-11-07] MEDS: ceFAZolin 2 GM in Premix Bag 1 BAG IV SCH ×3 (00:26→07:26)
[2019-11-07] MEDS: Cyclobenzaprine 10 MG Tab PO PRN ×3 (03:11→20:49)
[2019-11-07] MEDS: Acetaminophen 500 MG Tab PO SCH ×4 (03:11→20:42)
[2019-11-07] MEDS: diphenhydrAMINE 25 MG Cap PO PRN ×3 (04:36→20:49)
[2019-11-07] MEDS: Venlafaxine 75 MG Tab PO SCH ×3 (08:10→20:44)
[2019-11-07] MEDS: PHENYTOIN 50 MG CHEW SCH (08:10)
[2019-11-07] MEDS: hydrOXYzine HCL 100 MG/2 ML SDV IM PRN (08:15)
[2019-11-07] MEDS: Docusate Sodium 100 MG Cap PO SCH ×2 (09:37→20:43)
[2019-11-07] MEDS: Bisacodyl 5 MG Tab PO SCH ×2 (09:37→20:43)
[2019-11-07] MEDS: Apixaban 5 MG Tab PO SCH ×2 (09:44→20:44)
[2019-11-07] MEDS: Pantoprazole 40 MG Tab.CR PO SCH (17:52)
[2019-11-07] MEDS: Sodium Ferric Gluconate Cmplex 250 MG in Sodium Chloride 0.9% 100 ML IV SCH (18:37)
[2019-11-07] MEDS: Topiramate 25 MG Tab PO SCH (20:44)
[2019-11-07] MEDS: Carbidopa/Levodopa 25-100 MG Tab PO SCH (20:44)
[2019-11-07] MEDS: Mirtazapine 15 MG Tab PO SCH (20:44)
[2019-11-08] MEDS: Dextrose 5%-Lactated Ringers 1,000 ML IV SCH (02:11)
[2019-11-08] MEDS: Acetaminophen 500 MG Tab PO SCH ×4 (02:12→21:21)
[2019-11-08] MEDS: diphenhydrAMINE 25 MG Cap PO PRN (05:16)
[2019-11-08] MEDS: Cyclobenzaprine 10 MG Tab PO PRN ×3 (05:16→17:36)
[2019-11-08] MEDS: Venlafaxine 75 MG Tab PO SCH ×2 (08:40→21:22)
[2019-11-08] MEDS: PHENYTOIN 50 MG CHEW SCH (08:41)
[2019-11-08] MEDS: Docusate Sodium 100 MG Cap PO SCH ×2 (08:41→21:21)
[2019-11-08] MEDS: Apixaban 5 MG Tab PO SCH ×2 (08:41→21:23)
[2019-11-08] MEDS: Bisacodyl 5 MG Tab PO SCH ×2 (08:41→21:21)
[2019-11-08] MEDS: oxyCODONE 5 MG Tab PO PRN ×3 (11:32→21:30)
[2019-11-08] MEDS: Pantoprazole 40 MG Tab.CR PO SCH (15:34)
[2019-11-08] MEDS: Mirtazapine 15 MG Tab PO SCH (21:23)
[2019-11-08] MEDS: Topiramate 25 MG Tab PO SCH (21:23)
[2019-11-08] MEDS: Carbidopa/Levodopa 25-100 MG Tab PO SCH (21:23)
[2019-11-09] MEDS: Cyclobenzaprine 10 MG Tab PO PRN ×2 (02:37→09:01)
[2019-11-09] MEDS: oxyCODONE 5 MG Tab PO PRN ×2 (02:37→07:53)
[2019-11-09] MEDS: Acetaminophen 500 MG Tab PO SCH ×2 (02:37→07:54)
[2019-11-09] MEDS ORDERED: Magnesium Hydroxide 400 MG/5 ML Susp 30 ML Cup PO ONE (07:55)
[2019-11-09 07:56] VITALS: BP 114/53; PULSE 66
[2019-11-09] MEDS: Venlafaxine 75 MG Tab PO SCH (09:01)
[2019-11-09] MEDS: Docusate Sodium 100 MG Cap PO SCH (09:01)
[2019-11-09] MEDS: Bisacodyl 5 MG Tab PO SCH (09:01)
[2019-11-09] MEDS: Apixaban 5 MG Tab PO SCH (09:01)
[2019-11-09] MEDS: PHENYTOIN 50 MG CHEW SCH (09:01)
--- NOTE | 2019-11-09 12:24 | PN ---
DATE OF SERVICE: 11/07/2019 The patient has been afebrile with stable vital signs. Early on, her pain control was somewhat problematic. That appeared to be quite good this morning with the addition of Tylenol and slight increase in the LOADER OPERATOR dose. Otherwise, we will go down on the IV at a 100 an hour. Hill catheter to come out, start a step-4 diet, begin some bowel stimulation. We will leave her on the LOADER OPERATOR for today and then probably switch to oral pain medicine exclusively tomorrow. Wilbur Herman MD /[id number] MTDD
--- NOTE | 2019-11-09 12:54 | PN ---
DATE OF SERVICE: 11/08/2019 The patient has been afebrile with stable vital signs. No major problems were noted overnight. Pain control appears to be still somewhat marginal, and she has quite a bit in the way of muscle spasm. We will move her Flexeril up to q.6 hours p.r.n., and we will switch over to oral pain medications. She will begin oxycodone today, in addition to the Tylenol. She may be ready for discharge home tomorrow. Wilbur Herman MD /[id number] MTDD
--- NOTE | 2019-11-10 12:28 | DISCH ---
FINAL DIAGNOSES: 1. Incarcerated incisional hernia. 2. Non-incarcerated umbilical hernia. 3. Focal small bowel volvulus secondary to adhesions. 4. Extensive intraabdominal adhesions. 5. Bariatric surgery status. 6. Factor V Leiden deficiency with history of deep venous thrombosis. 7. Depression and bipolar disorder. OPERATIVE PROCEDURES: Done on 11/06/2019, exploratory laparotomy with lysis of adhesions and: 1. Reduction of small bowel volvulus, closure of focal mesenteric defect. 2. Repair of incarcerated incisional hernia with mesh. 3. Repair of non-incarcerated umbilical hernia with mesh. 4. Placement of Interceed mesh x2 to limit recurrent adhesion formation between pelvic and abdominal wall and underlying viscera. SUMMARY: This is a 43-year-old presenting with a progressively enlarging incisional hernia in an upper midline incision. Because of the size of the defect, it was felt an open approach with closure of the fascia underlying the mesh would give a more stable abdominal wall than a laparoscopic approach. This was done on the date of admission. The patient was noted to have some incarcerated omentum within the hernia and also non-incarcerated umbilical hernia below it as well. On examination of the small bowel, the patient had a focal small bowel volvulus with a portion of the Emerita limb passing through the defect underlying the jejunojejunostomy as well as being distorted by some adhesions in that area. This was corrected and the mesenteric defect closed. The hernia repair was undertaken with a mesh approach, and Interceed mesh was placed to limit recurrent adhesion formation. Postoperatively, the patient has done well. Initially, she had quite a bit of postoperative pain, this gradually subsided. She will be discharged home, maintaining a lifting restriction of 10 pounds for 6 weeks postoperatively. Medications on discharge include her current medications plus oxycodone 5 mg p.o. q.4 hours p.r.n. pain #42, Flexeril 10 mg p.o. q.8 hours p.r.n. muscle spasm #30 with 1 refill. She was also instructed that she could take up to 4000 mg of Tylenol a day on a p.r.n. basis, and she had passage of gas but not moving her bowels as of yet, so will start a program of milk of magnesia to take as needed. Followup with Marine Talley at [facility] on 11/17/2019.
--- NOTE | 2019-11-11 15:14 | OR ---
DATE OF PROCEDURE: 11/06/2019 SURGEON: Wilbur Herman MD PREOPERATIVE DIAGNOSIS: Incisional hernia. POSTOPERATIVE DIAGNOSES: 1. Incarcerated incisional hernia. 2. Non-incarcerated umbilical hernia. 3. Focal small bowel volvulus secondary to adhesions and focal mesenteric defect. 4. Extensive intra-abdominal adhesions. OPERATIVE PROCEDURE: Exploratory laparotomy with lysis of adhesions: 1. Reduction of small bowel volvulus, closure of internal hernia (99852). 2. Repair of incarcerated incisional hernia with mesh (77930, 40673). 3. Repair of non-incarcerated umbilical hernia with mesh (55882). 4. Placement of Interceed mesh x2 to limit recurrent adhesion formation between pelvic and abdominal wall and underlying viscera (64774). ANESTHESIA: General. NAPHTHALENE OPERATOR HELPER: Marine Talley PA-C INDICATIONS FOR PROCEDURE: The patient presents with increasingly enlarging incisional hernia located in the upper midline incision. Plan is to proceed with open repair of this with mesh. Besides, the defect is such that a laparoscopic approach appeared to be less than satisfactory in terms of need to obtain actual closure overlying the mesh to provide adequate abdominal wall stability. Potential risks of procedure including bleeding, infection, injury to the underlying viscera, problems with mesh becoming infected or the hernia recurring were all reviewed, and the patient wishes to proceed. DETAILS OF PROCEDURE: The patient was taken to the operating room, placed in a supine position. After general endotracheal anesthesia was induced, a Hill catheter inserted, and the abdomen prepped and draped. A previous upper midline incision was then reused and was extended from the umbilicus roughly a handsbreadth toward the xiphoid. It was carried down through the skin and subcutaneous tissue. The hernia sac was then encountered and dissection was carried down to the level of fascial edges in all directions. The hernia sac was then opened. The patient was noted to have some incarcerated omentum within it and was dissected away from the hernia sac. Hernia sac was then excised partially with the fascia circumferentially. The dissection then continued downward toward the umbilicus where the patient was noted to have a separate umbilical hernia, and that hernia sac was then removed more or less as part of the primary incisional hernia. Once this was accomplished, no further problems were noted. A Ventralex ST mesh measuring 15.5 x 25.7 cm was selected through the broad transverse widening of the fascial defect. We elected to place the long axis of this mesh in a transverse orientation roughly 5 cm intervals around its circumference. On the polypropylene side of the mesh, 2-0 Vicryl sutures were placed. Small stab wounds were then placed on the abdominal wall where those sutures would be pulled up and the mesh was then soaked in antibiotic-containing saline solution. The left side of the mesh was then initially brought up, positioned by means of pulling these sutures up through the abdominal wall. At that point, then 2 segments of Interceed mesh were placed underneath the Ventrio ST mesh and from there down toward the pelvis to limit recurrent adhesion formation between the pelvic, abdominal wall, and underlying viscera. Remaining sutures were then pulled up thus fixing the mesh in general position on the underlying shelf of the mesh, then titanium-tacking screws were placed between that and the abdominal wall circumferentially as well. There appeared to be good mesh fixation at this point. The abdominal wall defects between both incisional hernia and umbilical hernia could be widely covered with good margin with the finally placed mesh. The abdomen was irrigated with antibiotic-containing saline solution, the midline fascia was then approximated in a vertical orientation with running #2 Vicryl stitch, subcutaneous tissue with 2 layers of 3-0 and 4-0 Vicryl stitch deep and the skin with pepper. Dressing was applied. The patient was taken to the recovery room in satisfactory condition. Prior to closure, the fascia was anesthetized with 0.5% Marcaine mixed with lidocaine and prior to closure, the patient had bilateral transversus abdominis plane block placed as well. Physician medical assistant prn, Marine Talley, played an essential role in assisting in this case helping to position the patient, retract structures as needed, as well as suturing and cutting sutures when indicated. Her presence improved patient safety and decreased operative time. Wilbur Herman MD /[id number]
== END 2019-11-09 09:45 | disposition home or self-care (01) | DRG 329 ==
LOC: JP.SDSSCHI 06:11 → JP.SDS 06:11 → JP.MS 09:45 → EDSTATUS 11:45
PROVIDERS: ADMIT Surgery; ATTEND Surgery
PROC: 0WUF0JZ Supplement Abdominal Wall with Synthetic Substitute, Open Approach (ICD-10-PCS; principal; 2019-11-06)
PROC: 0DS80ZZ Reposition Small Intestine, Open Approach (ICD-10-PCS; 2019-11-06)
PROC: 3E0M05Z Introduction of Adhesion Barrier into Peritoneal Cavity, Open Approach (ICD-10-PCS; 2019-11-06)
DX: K43.0 Incisional hernia with obstruction, without gangrene (principal); K56.2 Volvulus; K56.51 Intestinal adhesions [bands], with partial obstruction; D68.51 Activated protein C resistance; K42.9 Umbilical hernia without obstruction or gangrene; Z98.84 Bariatric surgery status; Z86.718 Personal history of other venous thrombosis and embolism; Z79.01 Long term (current) use of anticoagulants; F31.9 Bipolar disorder, unspecified; G40.909 Epilepsy, unspecified, not intractable, without status epilepticus; F17.210 Nicotine dependence, cigarettes, uncomplicated; Z90.89 Acquired absence of other organs; Z90.710 Acquired absence of both cervix and uterus; Z88.5 Allergy status to narcotic agent; Z88.8 Allergy status to other drugs, medicaments and biological substances
CPT/HCPCS: 94762; A9270-GY; C1713; C1781; C9113; J0131; J0171; J0330; J0690; J0694; J1100; J1170; J2001; J2020; J2185; J2405; J2704; J2710; J2795; J2916; J3010; J3410; J3490; J7050; J7121

== ENCOUNTER 2019-12-20 01:51 | Emergency (ER) | payer MEDICAID ==
[2019-12-20 01:59] VITALS: BP 153/85; PULSE 81
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
== END 2019-12-20 05:21 | disposition home or self-care (01) ==
LOC: JP.ED 01:51
DX: S62.324A Displaced fracture of shaft of fourth metacarpal bone, right hand, initial encounter for closed fracture (principal); S00.03XA Contusion of scalp, initial encounter; S50.02XA Contusion of left elbow, initial encounter; S50.01XA Contusion of right elbow, initial encounter; K21.9 Gastro-esophageal reflux disease without esophagitis; F41.9 Anxiety disorder, unspecified; F31.9 Bipolar disorder, unspecified; R56.9 Unspecified convulsions; F17.210 Nicotine dependence, cigarettes, uncomplicated; Z86.711 Personal history of pulmonary embolism; Z86.718 Personal history of other venous thrombosis and embolism; Z88.8 Allergy status to other drugs, medicaments and biological substances; Z88.6 Allergy status to analgesic agent; Z79.01 Long term (current) use of anticoagulants; Z79.899 Other long term (current) drug therapy; Y04.0XXA Assault by unarmed brawl or fight, initial encounter; Y92.89 Other specified places as the place of occurrence of the external cause
CPT/HCPCS: 29125; 70450; 73080-LT; 73130-26-RT; 73130-RT; 99284-25

== ENCOUNTER 2020-09-29 14:00 | Emergency (ER) | payer MEDICAID ==
--- NOTE | 2020-09-29 14:12 | EDM.PDOC ---
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 feels short of breath no nausea vomiting no diaphoresis no known heart disease - Related Data Allergies Allergy/AdvReac Type Severity Reaction Status Date / Time carbamazepine [From Tegretol] Allergy Abdominal Verified 12/20/19 02:01 Pain meperidine HCl [From Demerol] AdvReac Shaking Verified 12/20/19 02:01 NSAIDS (Non-Steroidal AdvReac Cannot Verified 12/20/19 02:01 Anti-Inflamma Remember Home Meds: Home Meds Omeprazole 20 mg PO BEDTIME 03/06/13 [History] Phenytoin [Dilantin] 450 mg PO DAILY 03/06/13 [History] Topiramate [Topamax] 50 mg PO BEDTIME 09/02/13 [History] Mirtazapine 30 mg PO BEDTIME 07/27/14 [History] EPINEPHrine [Epipen] 0.3 mg IM ONETIME PRN 05/07/15 [History] Carbidopa/Levodopa [Sinemet 25-100 mg Tablet] 1 tab PO BEDTIME 07/05/19 [History] Calcium Carb/Vitamin D3/Vit K1 [Calcium + D Soft Chewable Tab] 1 each PO BID 11/04/19 [History] Cyanocobalamin (Vitamin B-12) [Vitamin B-12] 1,000 mcg SL DAILY 11/04/19 [History] Ergocalciferol (Vitamin D2) [Vitamin D2] 1.25 mg PO DAILY 11/04/19 [History] Pedi Multivit 22/Vit D3/Vit K [Mvw Complete Formul D5000 Chew] 1 each PO BID 11/04/19 [History] Vitamin B Complex [B Complex] 1 each PO DAILY 11/04/19 [History] Apixaban [Eliquis] 5 mg PO BID 11/06/19 [History] Venlafaxine HCl 75 mg PO QAM 11/07/19 [History] Venlafaxine HCl 150 mg PO BEDTIME 11/07/19 [History] Acetaminophen [Tylenol Extra Strength] 1,000 mg PO Q6H tablet 11/09/19 [Rx] Cyclobenzaprine [Flexeril] 10 mg PO Q8H PRN #30 tab 11/09/19 [Rx] Past Medical History HEENT History: Reports: Other (See Below) Other HEENT History: Dental issues, dentures, wears glasses Cardiovascular History: Reports: Blood Clots/VTE/DVT Respiratory History: Reports: PE Other Respiratory History: PE 12 years ago on coumadin. Gastrointestinal History: Reports: GERD Genitourinary History: Reports: UTI, Recurrent HOSPITAL INTERN History: Reports: Musculoskeletal History: Reports: Other (See Below) Other Musculoskeletal History: Right hand FX. Right ankle FX. left elbow pain Neurological History: Reports: Seizure, Other (See Below) Other Neuro History: last seizure 8 years ago, epilepsy Psychiatric History: Reports: Anxiety, Bipolar, Depression, Emotional Problems, Psych Hospitalization(s) Endocrine/Metabolic History: Reports: Other (See Below) Other Endocrine/Metabolic History: factor 5 Hematologic History: Reports: B12 Deficiency, Bleeding Disorder, Iron Deficiency, Other (See Below) Other Hematologic History: factor 5 - Infectious Disease History Infectious Disease History: Reports: Chicken Pox - Past Surgical History Head Surgeries/Procedures: Reports: None HEENT Surgical History: Reports: Tonsillectomy GI Surgical History: Reports: Appendectomy, Bariatric Procedure, Cholecystectomy, EGD, Other (See Below) Other GI Surgeries/Procedures: Expl lap, volvulus Female Surgical History: Reports: Breast Reduction, Section, D&C, Hysterectomy, Oophorectomy, Tubal Ligation Musculoskeletal Surgical History: Reports: None Other Oncologic Surgeries/Procedures: precancerous cells in uterous, had a COMB done Social & Family History - Family History Family Medical History: No Pertinent Family History Cardiac: Reports: [place] Respiratory: Reports: Other (See Below) Other Respiratory Family Hisory: emphysema Psychiatric: Reports: Other (See Below) Other Psychiatric Family History: Mental illness,alzheimers Endocrine/Metabolic: Reports: Diabetes, type II Oncologic: Reports: Breast, Lung - Tobacco Use Tobacco Use Status *Q: Current Every Day Tobacco User - Caffeine Use Caffeine Use: Reports: Coffee ED ROS GENERAL - Review of Systems Review Of Systems: See Below Constitutional: Reports: No Symptoms HEENT: Reports: No Symptoms Respiratory: Reports: Shortness of Breath Cardiovascular: Reports: Chest Pain GI/Abdominal: Reports: No Symptoms : Reports: No Symptoms Musculoskeletal: Reports: No Symptoms ED EXAM, GENERAL - Physical Exam Exam: See Below Exam Limited By: No Limitations General Appearance: Alert, Mild Distress Respiratory/Chest: No Respiratory Distress, Lungs Clear, Normal Breath Sounds, No Accessory Muscle Use, Other (Chest is tender to palpation on the left side T4 to the bottom of the rib cage) Cardiovascular: Regular Rate, Rhythm, No Murmur GI/Abdominal: Soft, Non-Tender #1 Interpretation EKG Date: 09/29/20 Time: 14:07 Rhythm: NSR Rate (Beats/Min): 81 [place]: Normal P-Wave: Present QRS: Normal ST-T: Normal QT: Normal Comparison: No Change Course - Vital Signs Last Recorded V/S: Last Vital Signs Temp 98.9 F 09/29/20 14:15 Pulse 68 09/29/20 15:08 Resp 14 09/29/20 15:08 BP 135/75 09/29/20 15:08 Pulse Ox 98 09/29/20 15:08 - Orders/Labs/Meds Orders: Active Orders 24 hr Category Date Time Status Cardiac Monitoring [RC] .As Directed Care 09/29/20 14:10 Active EKG Documentation Completion [RC] ASDIRECTED Care 09/29/20 14:10 Active Peripheral IV Care [RC] . DIRECTED Care 09/29/20 14:14 Active Iopamidol [Isovue-370 (76%)] Med 09/29/20 15:15 Active 100 ml IV . DIRECTED Morphine Med 09/29/20 14:14 Active 4 mg IVPUSH Q10M PRN Nitroglycerin [Nitrostat] Med 09/29/20 14:14 Active 0.4 mg SL Q5M PRN Sodium Chloride 0.9% [Normal Saline] 1,000 ml Med 09/29/20 14:45 Active IV ASDIRECTED Sodium Chloride 0.9% [Normal Saline] 100 ml Med 09/29/20 15:15 Active IV ASDIRECTED Sodium Chloride 0.9% [Saline Flush] Med 09/29/20 14:14 Active 10 ml FLUSH ASDIRECTED PRN Peripheral IV Insertion Adult [OM.PC] Stat Oth 09/29/20 14:14 Ordered EKG 12 Lead [EK] Stat Ther 09/29/20 14:10 Ordered Medication Orders Sodium Chloride (Normal Saline) 1,000 mls @ 500 mls/hr IV ASDIRECTED MARK Sodium Chloride (Normal Saline) 100 mls @ 3 mls/sec IV ASDIRECTED MARK Last Admin: 09/29/20 15:08 Dose: 3 mls/sec Documented by: MATTHIAS Iopamidol (Iopamidol 755 Mg/Ml 100 Ml Bottle) 100 ml IV . DIRECTED MARK Last Admin: 09/29/20 15:08 Dose: 100 ml Documented by: MATTHIAS Morphine Sulfate (Morphine 4 Mg/Ml Syringe) 4 mg IVPUSH Q10M PRN PRN Reason: Chest Pain Stop: 09/30/20 14:14 Last Admin: 09/29/20 14:18 Dose: 4 mg Documented by: RAJ Nitroglycerin (Nitroglycerin 0.4 Mg Tab.Sl) 0.4 mg SL Q5M PRN PRN Reason: Chest Pain Stop: 09/30/20 14:14 Sodium Chloride (Sodium Chloride 0.9% 10 Ml Syringe) 10 ml FLUSH ASDIRECTED PRN PRN Reason: Keep Vein Open Last Admin: 09/29/20 15:08 Dose: 10 ml Documented by: Admin: 09/29/20 14:20 Dose: 10 ml Documented by: RAJ Labs: Laboratory Tests 09/29/20 09/29/20 Range/Units 14:15 14:15 WBC 7.8 (4.5-11.0) K/uL RBC 4.52 (3.30-5.50) M/uL Hgb 13.7 D (12.0-15.0) g/dL Hct 41.3 (36.0-48.0) % MCV 91 (80-98) fL MCH 30 (27-31) pg MCHC 33 (32-36) % Plt Count 196 (150-400) K/uL Neut % (Auto) 63 (36-66) % Lymph % (Auto) 25 (24-44) % [place] % (Auto) 11 H (2-6) % Eos % (Auto) 1 L (2-4) % Baso % (Auto) 0 (0-1) % Sodium 142 (140-148) mmol/L Potassium 4.6 (3.6-5.2) mmol/L Chloride 104 (100-108) mmol/L Carbon Dioxide 28 (21-32) mmol/L Anion Gap 9.7 (5.0-14.0) mmol/L BUN 14 D (7-18) mg/dL Creatinine 0.7 (0.6-1.0) mg/dL Est Cr Clr Drug Dosing 104.95 mL/min Estimated GFR (MDRD) > 60 (>60) Glucose 89 (74-106) mg/dL Calcium 9.7 D (8.5-10.1) mg/dL Troponin I < 0.017 (0.000-0.056) ng/mL Meds: Medications Generic Name Dose Route Start Last Admin Trade Name Freq PRN Reason Stop Dose Admin Sodium Chloride 1,000 mls @ 500 mls/hr 09/29/20 14:45 Normal Saline IV ASDIRECTED MARK Sodium Chloride 100 mls @ 3 mls/sec 09/29/20 15:15 09/29/20 15:08 Normal Saline IV 3 mls/sec ASDIRECTED MARK Administration Iopamidol 100 ml 09/29/20 15:15 09/29/20 15:08 Iopamidol 755 Mg/Ml 100 Ml Bottle IV 100 ml . DIRECTED MARK Administration Morphine Sulfate 4 mg 09/29/20 14:14 09/29/20 14:18 Morphine 4 Mg/Ml Syringe IVPUSH 09/30/20 14:14 4 mg Q10M PRN Administration Chest Pain Nitroglycerin 0.4 mg 09/29/20 14:14 Nitroglycerin 0.4 Mg Tab.Sl SL 09/30/20 14:14 Q5M PRN Chest Pain Sodium Chloride 10 ml 09/29/20 14:14 09/29/20 15:08 Sodium Chloride 0.9% 10 Ml Syringe FLUSH 10 ml ASDIRECTED PRN Administration Keep Vein Open Discontinued Medications Generic Name Dose Route Start Last Admin Trade Name Freq PRN Reason Stop Dose Admin Sodium Chloride 10 ml 09/29/20 15:04 Sodium Chloride 0.9% 10 Ml Sdv FLUSH 09/29/20 15:05 ONETIME ONE Departure - Departure Time of Disposition: 15:56 Disposition: Home, Self-Care 01 Condition: Fair Clinical Impression: Chest wall pain Instructions: Nonspecific Chest Pain, Adult Forms: ED Department Discharge Additional Instructions: Use Tylenol as needed for pain control, please followup with your primary care provider in 3-5 days if not better, please call return to the emergency department with worsening of symptoms. Sepsis Event Note (ED) - Focused Exam Vital Signs: Vital Signs Temp Pulse Resp BP Pulse Ox 09/29/20 15:08 68 14 135/75 98 09/29/20 14:39 78 8 L 149/77 H 98 09/29/20 14:15 98.9 F 80 13 131/76 99 09/29/20 14:13 98.9 F 80 13 131/76 99 - My Orders Last 24 Hours: My Active Orders 09/29/20 14:10 Cardiac Monitoring [RC] .As Directed EKG Documentation Completion [RC] ASDIRECTED EKG 12 Lead [EK] Stat 09/29/20 14:14 Peripheral IV Care [RC] . DIRECTED Morphine 4 mg IVPUSH Q10M PRN Nitroglycerin [Nitrostat] 0.4 mg SL Q5M PRN Sodium Chloride 0.9% [Saline Flush] 10 ml FLUSH ASDIRECTED PRN Peripheral IV Insertion Adult [OM.PC] Stat 09/29/20 14:45 Sodium Chloride 0.9% [Normal Saline] 1,000 ml IV ASDIRECTED 09/29/20 15:15 Iopamidol [Isovue-370 (76%)] 100 ml IV . DIRECTED Sodium Chloride 0.9% [Normal Saline] 100 ml IV ASDIRECTED - Assessment/Plan Last 24 Hours: My Active Orders 09/29/20 14:10 Cardiac Monitoring [RC] .As Directed EKG Documentation Completion [RC] ASDIRECTED EKG 12 Lead [EK] Stat 09/29/20 14:14 Peripheral IV Care [RC] . DIRECTED Morphine 4 mg IVPUSH Q10M PRN Nitroglycerin [Nitrostat] 0.4 mg SL Q5M PRN Sodium Chloride 0.9% [Saline Flush] 10 ml FLUSH ASDIRECTED PRN Peripheral IV Insertion Adult [OM.PC] Stat 09/29/20 14:45 Sodium Chloride 0.9% [Normal Saline] 1,000 ml IV ASDIRECTED 09/29/20 15:15 Iopamidol [Isovue-370 (76%)] 100 ml IV . DIRECTED Sodium Chloride 0.9% [Normal Saline] 100 ml IV ASDIRECTED Plan: Assessment Acuity = acute Site and laterality = chest wall pain Etiology = unknown Manifestations = none Location of injury = Home Lab values = CBC, BMP unremarkable troponin was negative EKG is similar to prior EKGs no ST elevations or depressions CT scan of the chest reveals no pulmonary embolism Plan I did review lab work chest x-ray results with her she had good relief from the morphine provided in the ED she is going to use Tylenol and as needed for pain control follow-up primary care 2 to 3 days if not better This note was dictated using [employer] voice recognition software please call with any questions on syntax or grammar.
[2020-09-29] MEDS ORDERED: Morphine 4 MG/ML Syringe IVPUSH PRN (14:14)
[2020-09-29] MEDS ORDERED: Nitroglycerin 0.4 MG Tab.SL SL PRN (14:14)
[2020-09-29] MEDS: Sodium Chloride 0.9% 10 ML Syringe FLUSH PRN ×2 (14:20→15:08)
--- NOTE | 2020-09-29 14:38 | CR ---
CHEST: Portable 09/29/2020 and 2:29 PM CLINICAL HISTORY:Chest pain COMPARISON:2012 FINDINGS: The heart size, pulmonary vascularity and hilar structures are normal. No infiltrate effusion or pneumothorax is seen. IMPRESSION: No acute cardiopulmonary process.
[2020-09-29] MEDS ORDERED: Sodium Chloride 0.9% 1,000 ML IV SCH (14:45)
[2020-09-29] MEDS ORDERED: Sodium Chloride 0.9% 10 ML SDV FLUSH ONE (15:04)
[2020-09-29] MEDS ORDERED: Sodium Chloride 0.9% 100 ML IV SCH (15:15)
[2020-09-29] MEDS ORDERED: Iopamidol 755 Mg/ML 100 ML Bottle IV SCH (15:15)
--- NOTE | 2020-09-29 15:37 | CT ---
Ang Chest CLINICAL HISTORY: Chest pain TECHNIQUE: Thin section axial contiguous tomographic sections were taken through the chest after bolus IV iodinated contrast administration. Coronal and sagittal images were reconstructed. Auto dosage reduction and iterative reconstruction techniques employed. FINDINGS: No pulmonary masses or infiltrates are seen. There is some mild dependent edema posteriorly. There is some pleural parenchymal scarring in the left posterior costophrenic angle. No mediastinal mass or lymphadenopathy is seen. Pulmonary arteries are free of filling defects. Aorta is free of aneurysm or dissection. There are no pleural effusions. Scans into the upper abdomen show previous gastric surgery and cholecystectomy. IMPRESSION: No evidence of pulmonary embolus No mass or infiltrate Previous bariatric surgery
[2020-09-29 16:01] VITALS: BP 134/74; PULSE 70
== END 2020-09-29 16:06 | disposition home or self-care (01) ==
LOC: JP.ED 14:00
DX: R07.89 Other chest pain (principal); Z88.8 Allergy status to other drugs, medicaments and biological substances; Z88.5 Allergy status to narcotic agent; R56.9 Unspecified convulsions; K21.9 Gastro-esophageal reflux disease without esophagitis; Z79.899 Other long term (current) drug therapy; Z79.01 Long term (current) use of anticoagulants; Z86.718 Personal history of other venous thrombosis and embolism; Z86.711 Personal history of pulmonary embolism
CPT/HCPCS: 36415; 71045; 71045-26; 71275; 71275-26; 80048; 84484; 85025; 93005; 96374; 99284; 99285-25; J2270; Q9967

== ENCOUNTER 2020-10-02 11:36 | Emergency (ER) | payer MEDICAID ==
[2020-10-02 11:48] VITALS: BP 148/73; PULSE 86
[2020-10-02] MEDS ORDERED: Baclofen 10 MG Tab PO ONE (12:43)
[2020-10-02] MEDS ORDERED: HYDROmorphone 0.5 MG/0.5 ML Syringe IM ONE (12:43)
[2020-10-02] MEDS ORDERED: Acetaminophen/oxyCODONE 325-5 MG Tab PO ONE (14:06)
--- NOTE | 2020-10-02 14:08 | EDM.PDOC ---
ED HPI GENERAL MEDICAL PROBLEM - General Chief Complaint: Respiratory Problem Stated Complaint: CHEST PAIN - Time Seen by Provider: 10/02/20 11:50 Source of Information: Reports: Patient History Limitations: Reports: No Limitations - History of Present Illness INITIAL COMMENTS - FREE TEXT/NARRATIVE: pt was seen on thur and did have a very extensive evaluation for the pain. Today her pain is localized to the left lower scapula. she had definite point tenderness. She hurts when she moves and she is not able to lie on the left side. Onset: Today Duration: Day(s):, Other (pain is not improving. ) Location: Reports: Other ( left lower scapula area. ) Associated Symptoms: Reports: Chest Pain, Other ( hurts to take a deep breath. ) Left Anterior Chest Pain Score (Numeric/FACES): 7 - Related Data Allergies Allergy/AdvReac Type Severity Reaction Status Date / Time carbamazepine [From Tegretol] Allergy Abdominal Verified 10/02/20 11:58 Pain meperidine HCl [From Demerol] AdvReac Shaking Verified 10/02/20 11:58 NSAIDS (Non-Steroidal AdvReac Cannot Verified 10/02/20 11:58 Anti-Inflamma Remember Home Meds: Home Meds Omeprazole 20 mg PO BEDTIME 03/06/13 [History] Phenytoin [Dilantin] 450 mg PO DAILY 03/06/13 [History] Topiramate [Topamax] 50 mg PO BEDTIME 09/02/13 [History] Mirtazapine 30 mg PO BEDTIME 07/27/14 [History] EPINEPHrine [Epipen] 0.3 mg IM ONETIME PRN 05/07/15 [History] Carbidopa/Levodopa [Sinemet 25-100 mg Tablet] 1 tab PO BEDTIME 07/05/19 [History] Calcium Carb/Vitamin D3/Vit K1 [Calcium + D Soft Chewable Tab] 1 each PO BID 11/04/19 [History] Cyanocobalamin (Vitamin B-12) [Vitamin B-12] 1,000 mcg SL DAILY 11/04/19 [History] Ergocalciferol (Vitamin D2) [Vitamin D2] 1.25 mg PO DAILY 11/04/19 [History] Pedi Multivit 22/Vit D3/Vit K [Mvw Complete Formul D5000 Chew] 1 each PO BID 06/09/20 [History] Vitamin B Complex [B Complex] 1 each PO DAILY 11/04/19 [History] Apixaban [Eliquis] 5 mg PO BID 11/06/19 [History] Venlafaxine HCl 75 mg PO QAM 11/07/19 [History] Venlafaxine HCl 150 mg PO BEDTIME 11/07/19 [History] Acetaminophen [Tylenol Extra Strength] 1,000 mg PO Q6H tablet 11/09/19 [Rx] Cyclobenzaprine [Flexeril] 10 mg PO Q8H PRN #30 tab 11/09/19 [Rx] Past Medical History HEENT History: Reports: Other (See Below) Other HEENT History: Dental issues, dentures, wears glasses Cardiovascular History: Reports: Blood Clots/VTE/DVT Respiratory History: Reports: PE Other Respiratory History: PE 12 years ago on eliquis Gastrointestinal History: Reports: GERD Genitourinary History: Reports: UTI, Recurrent [employer] History: Reports: Musculoskeletal History: Reports: Other (See Below) Other Musculoskeletal History: Right hand FX. Right ankle FX. left elbow pain Neurological History: Reports: Seizure, Other (See Below) Other Neuro History: last seizure 8 years ago, epilepsy Psychiatric History: Reports: Anxiety, Bipolar, Depression, Emotional Problems, Psych Hospitalization(s) Endocrine/Metabolic History: Reports: Other (See Below) Other Endocrine/Metabolic History: factor 5 Hematologic History: Reports: B12 Deficiency, Bleeding Disorder, Iron Deficiency, Other (See Below) Other Hematologic History: factor 5 Oncologic (Cancer) History: Reports: None Dermatologic History: Reports: None - Infectious Disease History Infectious Disease History: Reports: Chicken Pox - Past Surgical History Head Surgeries/Procedures: Reports: None HEENT Surgical History: Reports: Tonsillectomy Cardiovascular Surgical History: Reports: Other (See Below) Other Cardiovascular Surgeries/Procedures: factor 5 Respiratory Surgical History: Reports: None GI Surgical History: Reports: Appendectomy, Bariatric Procedure, Cholecystectom y, EGD, Other (See Below) Other GI Surgeries/Procedures: Expl lap, volvulus Female Surgical History: Reports: Breast Reduction, Section, D&C, Hysterectomy, Oophorectomy, Tubal Ligation Endocrine Surgical History: Reports: None Neurological Surgical History: Reports: None Musculoskeletal Surgical History: Reports: None Other Oncologic Surgeries/Procedures: precancerous cells in uterous, had a COMB done Dermatological Surgical History: Reports: Plastic Surgical Reconstruction/Repair Social & Family History - Family History Family Medical History: No Pertinent Family History Cardiac: Reports: [place] Respiratory: Reports: Other (See Below) Other Respiratory Family Hisory: emphysema Psychiatric: Reports: Other (See Below) Other Psychiatric Family History: Mental illness,alzheimers Endocrine/Metabolic: Reports: Diabetes, type II Oncologic: Reports: Breast, Lung - Tobacco Use Tobacco Use Status *Q: Current Every Day Tobacco User Years of Tobacco use: 20 Packs/Tins Daily: 0.5 Used Tobacco, but Quit: No Second Hand Smoke Exposure: Yes - Caffeine Use Caffeine Use: Reports: Coffee - Recreational Drug Use Recreational Drug Use: No ED ROS GENERAL - Review of Systems Review Of Systems: See Below Constitutional: Reports: No Symptoms HEENT: Reports: No Symptoms Respiratory: Reports: No Symptoms, Other (pain by the left scapula. ) Cardiovascular: Reports: No Symptoms Endocrine: Reports: No Symptoms GI/Abdominal: Reports: No Symptoms : Reports: No Symptoms Musculoskeletal: Reports: Shoulder Pain, Other ( pain to the lwft of the lower scapula. ) Neurological: Reports: No Symptoms ED EXAM, GENERAL - Physical Exam Exam: See Below Free Text/Narrative:: pt has good oxgenation and 2 days ago had a angio of the chest. She is having severe pain by the left scapula area. Exam Limited By: No Limitations General Appearance: Alert, Anxious, Moderate Distress Ears: Normal TMs Nose: Normal Inspection Throat/Mouth: Normal Inspection Head: Atraumatic Neck: Normal Inspection Respiratory/Chest: Other (pain with deep breathing. ) Cardiovascular: Regular Rate, Rhythm GI/Abdominal: Soft, Non-Tender (Female) Exam: Deferred Back Exam: Other (pt is very tender to the kleft of the left scapula. There is defnitely point tenderness) Extremities: Normal Inspection Neurological: Alert, Oriented, Normal Cognition Psychiatric: Anxious Course - Vital Signs Last Recorded V/S: Last Vital Signs Temp 36.4 C 10/02/20 12:06 Pulse 86 10/02/20 12:06 Resp 18 10/02/20 12:06 BP 148/73 H 10/02/20 12:06 Pulse Ox 100 10/02/20 12:06 - Orders/Labs/Meds Orders: Active Orders 24 hr Category Date Time Status Thoracic Spine 3V [CR] Stat Exams 10/02/20 12:45 Taken EKG 12 Lead [EK] Routine Ther 10/02/20 14:10 Ordered Labs: Laboratory Tests 10/02/20 10/02/20 Range/Units 12:55 12:55 WBC 8.7 (4.5-11.0) K/uL RBC 4.68 (3.30-5.50) M/uL Hgb 14.3 (12.0-15.0) g/dL Hct 42.9 (36.0-48.0) % MCV 92 (80-98) fL MCH 31 (27-31) pg MCHC 33 (32-36) % Plt Count 229 (150-400) K/uL Neut % (Auto) 68 H (36-66) % Lymph % (Auto) 21 L (24-44) % [place] % (Auto) 10 H (2-6) % Eos % (Auto) 1 L (2-4) % Baso % (Auto) 1 (0-1) % C-Reactive Protein 2.90 H (0.0-0.3) mg/dL Meds: Medications Discontinued Medications Generic Name Dose Route Start Last Admin Trade Name Freq PRN Reason Stop Dose Admin Baclofen 10 mg 10/02/20 12:43 10/02/20 13:01 Baclofen 10 Mg Tab PO 10/02/20 12:44 10 mg ONETIME ONE Administration Hydromorphone HCl 0.5 mg 10/02/20 12:43 10/02/20 13:03 Hydromorphone 0.5 Mg/0.5 Ml Syringe IM 10/02/20 12:44 0.5 mg ONETIME ONE Administration Oxycodone/Acetaminophen 1 tab 10/02/20 14:06 10/02/20 14:10 Acetaminophen/Oxycodone 325-5 Mg Tab PO 10/02/20 14:07 1 tab ONETIME ONE Administration - Re-Assessments/Exams Free Text/Narrative Re-Assessment/Exam: 10/02/20 14:15 thoracic spine was obtained which did not reveal any comprwession fractures. Departure - Departure Time of Disposition: 14:16 Disposition: Home, Self-Care 01 Condition: Fair Clinical Impression: Pain of left scapula - Discharge Information Instructions: Musculoskeletal Pain Referrals: Waldemar Chandler MD [Primary Care Provider] - Forms: ED Department Discharge Care Plan Goals: moist warm heat to area followed by a ice pack, baclofen 10 mg bid to relax muscles, percocet 5/325 q6h prn for pain, appt for physical therapy, appt with Dr Chandler in 4-5 days. Sepsis Event Note (ED) - Evaluation Sepsis Screening Result: No Definite Risk - My Orders Last 24 Hours: My Active Orders 10/02/20 12:45 Thoracic Spine 3V [CR] Stat 10/02/20 14:10 EKG 12 Lead [EK] Routine - Assessment/Plan Last 24 Hours: My Active Orders 10/02/20 12:45 Thoracic Spine 3V [CR] Stat 10/02/20 14:10 EKG 12 Lead [EK] Routine
--- NOTE | 2020-10-04 10:09 | CR ---
Thoracic Spine 3V CLINICAL HISTORY: Left back pain FINDINGS: The vertebral bodies are normal in height. There is no significant osteophytosis. The pedicles are unremarkable. Alignment is maintained. Impression: Negative
== END 2020-10-02 14:33 | disposition home or self-care (01) ==
LOC: JP.ED 11:36
DX: M25.512 Pain in left shoulder (principal); K21.9 Gastro-esophageal reflux disease without esophagitis; G40.909 Epilepsy, unspecified, not intractable, without status epilepticus; Z86.718 Personal history of other venous thrombosis and embolism; Z88.8 Allergy status to other drugs, medicaments and biological substances; Z88.5 Allergy status to narcotic agent; Z86.711 Personal history of pulmonary embolism; Z79.01 Long term (current) use of anticoagulants; Z79.899 Other long term (current) drug therapy; Z72.0 Tobacco use
CPT/HCPCS: 36415; 72072; 85025; 86140; 96372; 99284; A9270; J1170; 99283

== ENCOUNTER 2022-05-22 13:24 | Emergency (ER) | payer MEDICAID ==
[2022-05-22 16:54] VITALS: BP 119/57; PULSE 74
[2022-05-22] MEDS ORDERED: HYDROmorphone 1 MG/ML Syringe IM ONE (17:08)
== END 2022-05-22 18:00 | disposition home or self-care (01) ==
LOC: JP.ED 13:24
DX: S82.831A Other fracture of upper and lower end of right fibula, initial encounter for closed fracture (principal); Z79.01 Long term (current) use of anticoagulants; Z88.8 Allergy status to other drugs, medicaments and biological substances; Z79.899 Other long term (current) drug therapy; W00.0XXA Fall on same level due to ice and snow, initial encounter
CPT/HCPCS: 29515; 73610; 96372; 99283; J1170

== ENCOUNTER 2022-05-31 07:27 | Day surgery (SDC) | payer MEDICAID ==
[~2022-05-31 07:27] MED LIST changes: +Bupivacaine 0.5% 30 ML SDV ONE; -Lidocaine 1% with EPINEPHrine 1:100,000 50 ML MDV ONE; -Sodium Chloride 0.9% 10 ML ONE; -Sodium Tetradecyl Sulfate 1% 20 MG/2 ML SDV ONE
[2022-05-31] MEDS ORDERED: Nozin Nasal Sanitizer NASBOTH ONE (08:00)
[2022-05-31] MEDS ORDERED: Dexamethasone 4 MG/ML SDV ONE (08:10)
[2022-05-31] MEDS ORDERED: Propofol 200 MG/20 ML SDV ONE ×2 (08:10→10:36)
[2022-05-31] MEDS ORDERED: Rocuronium 50 MG/5 ML Vial ONE (08:10)
[2022-05-31] MEDS ORDERED: Succinylcholine 200 MG/10 ML MDV ONE (08:10)
[2022-05-31] MEDS ORDERED: Neostigmine Methylsulfate 1 MG/ML 5 ML Syringe ONE (08:10)
[2022-05-31] MEDS ORDERED: Ondansetron 4 MG/2 ML SDV ONE (08:10)
[2022-05-31] MEDS ORDERED: Glycopyrrolate 0.2 MG/ML 5 ML MDV ONE (08:10)
[2022-05-31] MEDS ORDERED: fentaNYL 250 MCG/5 ML SDV ONE ×2 (08:12→09:57)
[2022-05-31] MEDS: Lactated Ringers 1,000 ML IV SCH ×2 (08:12→11:17)
[2022-05-31 08:20] LABS: ESTIMATED GFR 91 mL/min (>60)
[2022-05-31] MEDS ORDERED: ceFAZolin 2 GM in Sodium Chloride 0.9% 50 ML IV ONE (09:00)
[2022-05-31] MEDS ORDERED: Acetaminophen/HYDROcodone 325-5 MG Tab PO ONE (13:00)
[2022-05-31 13:57] VITALS: BP 114/76; PULSE 62
== END 2022-05-31 14:01 | disposition home or self-care (01) ==
LOC: JP.SDS 07:27
PROVIDERS: ATTEND Specialist
DX: S82.832A Other fracture of upper and lower end of left fibula, initial encounter for closed fracture (principal); S93.432A Sprain of tibiofibular ligament of left ankle, initial encounter; F31.9 Bipolar disorder, unspecified; Z88.6 Allergy status to analgesic agent; Z88.5 Allergy status to narcotic agent; Z79.899 Other long term (current) drug therapy
CPT/HCPCS: 27792; 27829; 36415; 76000; 80053; 85027; A9270-GY; C1713; C1776; J0330; J1100; J2405; J2704; J2710; J3010; J3490; J7120

== ENCOUNTER 2022-09-07 12:41 | Emergency (ER) | payer MEDICAID ==
[2022-09-07] MEDS ORDERED: Sodium Chloride 0.9% 1,000 ML IV ONE (13:16)
[2022-09-07] MEDS ORDERED: Sodium Chloride 0.9% 10 ML Syringe FLUSH PRN (13:16)
[2022-09-07 15:22] VITALS: BP 113/78; PULSE 76
== END 2022-09-07 15:32 | disposition home or self-care (01) ==
LOC: JP.ED 12:41
DX: E86.0 Dehydration (principal); R55 Syncope and collapse; D50.9 Iron deficiency anemia, unspecified; R63.0 Anorexia; K21.9 Gastro-esophageal reflux disease without esophagitis; F17.210 Nicotine dependence, cigarettes, uncomplicated; Z86.16 Personal history of COVID-19; Z86.711 Personal history of pulmonary embolism; Z88.8 Allergy status to other drugs, medicaments and biological substances; Z88.5 Allergy status to narcotic agent; Z79.01 Long term (current) use of anticoagulants; Z79.899 Other long term (current) drug therapy
CPT/HCPCS: 36415; 85014; 85018; 96360; 99284; J7030

== ENCOUNTER 2022-09-12 07:31 | Day surgery (SDC) | payer MEDICAID ==
[2022-09-12] MEDS ORDERED: Lactated Ringers 1,000 ML IV SCH (08:00)
[2022-09-12] MEDS ORDERED: fentaNYL 100 MCG/2 ML SDV ONE (09:03)
[2022-09-12] MEDS ORDERED: Midazolam 1 MG/ML 2 ML SDV ONE (09:03)
[2022-09-12] MEDS ORDERED: Propofol 200 MG/20 ML SDV ONE ×2 (09:03→09:24)
[2022-09-12 10:18] VITALS: BP 123/66; PULSE 49
== END 2022-09-12 10:32 | disposition home or self-care (01) ==
LOC: JP.SDS 07:31
PROVIDERS: ATTEND Family Medicine
DX: D12.8 Benign neoplasm of rectum (principal); K63.5 Polyp of colon; F41.9 Anxiety disorder, unspecified; F31.9 Bipolar disorder, unspecified; Z79.01 Long term (current) use of anticoagulants; Z86.718 Personal history of other venous thrombosis and embolism; Z88.8 Allergy status to other drugs, medicaments and biological substances
CPT/HCPCS: 45380; J2250; J2704; J3010; J7120

== ENCOUNTER 2023-02-26 08:57 | Day surgery (SDC) | payer MEDICAID ==
[2023-02-26] MEDS ORDERED: ceFAZolin 1 GM in Sodium Chloride 0.9% 50 ML IV ONE (09:30)
[2023-02-26] MEDS ORDERED: Lactated Ringers 1,000 ML IV SCH (09:30)
[2023-02-26] MEDS ORDERED: Nozin Nasal Sanitizer NASBOTH ONE (09:30)
[2023-02-26 09:32] LABS: HEMATOCRIT 35.7 % (34.3-46.0); MEAN CORPUSCULAR HEMOGLOBIN 22.4 pg (31.6-35.5); MEAN CORPUSCULAR HGB CONC 30.8 g/dL (31.6-35.5); MEAN CORPUSCULAR VOLUME 72.7 fL (81.4-99.0); RED BLOOD CELL COUNT 4.91 M/uL (3.77-5.24)
[2023-02-26 09:51] LABS: ALANINE AMINOTRANSFERASE,ALT 18 U/L (12-78); ALBUMIN 3.5 g/dL (3.4-5.0); ALKALINE PHOSPHATASE 144 U/L (46-116); ANION GAP 10.8 mmol/L (5.0-14.0); ASPARTATE AMNIOTRANSFERASE,AST 15 U/L (15-37); BILIRUBIN TOTAL 0.5 mg/dL (0.2-1.0); BLOOD UREA NITROGEN,BUN 14 mg/dL (7-18); CALCIUM 8.8 mg/dL (8.5-10.1); CARBON DIOXIDE,CO2 25 mmol/L (21-32); CHLORIDE,CL 104 mmol/L (100-108); CREATININE 0.7 mg/dL (0.6-1.0); ESTIMATED GFR 106 mL/min (>60); GLUCOSE RANDOM 97 mg/dL (74-106); POTASSIUM,K 4.3 mmol/L (3.6-5.2); PROTEIN TOTAL,TP 7.1 g/dL (6.4-8.2); SODIUM,NA 140 mmol/L (140-148)
[2023-02-26] MEDS ORDERED: Dexamethasone 4 MG/ML SDV ONE (10:18)
[2023-02-26] MEDS ORDERED: Neostigmine Methylsulfate 1 MG/ML 5 ML Syringe ONE (10:18)
[2023-02-26] MEDS ORDERED: Ondansetron 4 MG/2 ML SDV ONE (10:18)
[2023-02-26] MEDS ORDERED: Rocuronium 50 MG/5 ML Vial ONE (10:18)
[2023-02-26] MEDS ORDERED: Glycopyrrolate 0.2 MG/ML 5 ML MDV ONE (10:18)
[2023-02-26] MEDS ORDERED: fentaNYL 250 MCG/5 ML SDV ONE ×2 (10:18→11:34)
[2023-02-26] MEDS ORDERED: Propofol 200 MG/20 ML SDV ONE (10:18)
[2023-02-26] MEDS ORDERED: Bupivacaine 0.5% 30 ML SDV ONE (10:38)
[2023-02-26] MEDS ORDERED: Lidocaine 1% 50 ML MDV ONE (10:38)
[2023-02-26] MEDS ORDERED: Morphine 2 MG/ML SYRINGE IVPUSH ONE (12:17)
[2023-02-26] MEDS ORDERED: Acetaminophen/HYDROcodone 325-5 MG Tab PO PRN (13:03)
[2023-02-26 14:39] VITALS: BP 126/41; PULSE 53
== END 2023-02-26 14:50 | disposition home or self-care (01) ==
LOC: JP.SDS 08:57
PROVIDERS: ATTEND Specialist
DX: T84.84XA Pain due to internal orthopedic prosthetic devices, implants and grafts, initial encounter (principal); K21.9 Gastro-esophageal reflux disease without esophagitis; D64.9 Anemia, unspecified; F17.200 Nicotine dependence, unspecified, uncomplicated; F41.9 Anxiety disorder, unspecified; F31.9 Bipolar disorder, unspecified; Z88.6 Allergy status to analgesic agent; Z88.5 Allergy status to narcotic agent; Z86.711 Personal history of pulmonary embolism; Z98.84 Bariatric surgery status; Y79.2 Prosthetic and other implants, materials and accessory orthopedic devices associated with adverse incidents
CPT/HCPCS: 20680; 36415; 76000; 80053; 85027; A9270; J0690; J1100; J2270; J2405; J2704; J2710; J3010; J3490; J7120; J2001

== ENCOUNTER 2025-02-22 17:28 | Emergency (ER) | payer BC, MEDICAID, OTHER ==
[2025-02-22 17:44] VITALS: BP 134/81; PULSE 81
== END 2025-02-22 19:34 | disposition home or self-care (01) ==
LOC: JP.ED 17:28
DX: J06.9 Acute upper respiratory infection, unspecified (principal); K21.9 Gastro-esophageal reflux disease without esophagitis; E11.9 Type 2 diabetes mellitus without complications; F17.200 Nicotine dependence, unspecified, uncomplicated; Z88.8 Allergy status to other drugs, medicaments and biological substances; Z79.899 Other long term (current) drug therapy; Z86.16 Personal history of COVID-19
CPT/HCPCS: 99283